=== PATIENT | female | born 1940 | race Caucasian/White ===

== ENCOUNTER 2017-01-12 11:28 | Inpatient (IN) | payer MEDICARE, BC ==
[2017-01-12] MEDS ORDERED: ALBUTEROL SULFATE/IPRATROPIUM 3 ML NEBU IH PRN (11:30)
--- OUTSIDE RECORDS SUMMARY | 2017-01-12 11:33 | XMS REPORT | Continuity of Care Document ---
:1940 Author Organization [facility] ([facility]) Address [address] [place] [address] Phone [phone] Care Team Providers Name Role Phone Errol Monzon Primary Care Provider [phone] Source Comments This disclosure is being made pursuant to the Care Everywhere program, applicable federal and state laws, and may not contain all informaitonavailable regarding this patient.[facility] ([facility]) Active Allergies and Adverse Reactions Allergen Noted Date Severity Reactions Comments Sulfa (Sulfonamide Antibiotics) 08/30/2013 Rash Tramadol 02/12/2014 Respiratory Distress Current Medications Prescription Sig. Disp. Refills Start Date End Date Status warfarin (COUMADIN) Take 5 mg by mouth Active 5 mg tablet daily. Take 1 tab on Glq-tic-Rdm-Sun 1///WED aspirin 81 mg tablet take 81 mg by mouth Active daily. Take 1 tab daily simvastatin 20 mg Take 20 mg by mouth Active tablet every evening. zolpiDEM (AMBIEN) 5 Take 5 mg by mouth Active mg tablet at bedtime as needed. furosemide 40 mg Take 80 mg by mouth Active tablet daily. treprostinil Use 12 inhalations 30 Ampule 11 03/19/2015 Active (TYVASO) 1.74 mg/2.9 by inhalation 4 mL inhalation times daily. solution Indications: PULMONARY HYPERTENSIVE ARTERIAL DISEASE albuterol-ipratropiu Use 3 mL by Active m 2.5-0.5 mg/3 mL inhalation every 6 inhalation solution hours as needed fluticasone-vilanter Use 1 Puff by Active ol (BREO ELLIPTA) inhalation daily 100-25 mcg/dose inhaler INCRUSE ELLIPTA 62.5 Use 1 inhalation by 03/16/2016 Active mcg/actuation inhalation daily. inhaler tadalafil (ADCIRCA) Take 2 tablets (40 60 tablet 11 07/20/2016 Active 20 mg tablet mg total) by mouth daily. potassium chloride Take 1 tablet (10 90 tablet 3 10/06/2016 Active 10 mEq XR tablet mEq total) by mouth daily. macitentan (OPSUMIT) Take 1 tablet (10 mg 30 tablet 11 12/04/2016 Active 10 mg tablet total) by mouth daily. 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 Cardiac output by thermodilution was 4.12 with a Aneta output of 4.08 and index of 2.3. There was no change with adenosine challenge. She is treated withOpsumit and TYVASO breath 4 times a day. Followup echo in July 2014 showed no evidence of pulmonary hypertension Right heart cath 04/17/2015 here at [facility]: RA 6, RV 38/6, PA 38/16 mean 25, wedge 10, SVR 1102, PVR 2.55 cardiac output thermodilution 5.19 with an index of 2.95, and Aneta 5.88 with an index of 3.3, PAmain sat of 69%. No changes were made. Echocardiogram performed March 30, 2016 at [place] revealed an RV systolic pressure of 48 mm mercury her is normal LV ejection fraction and the septum is no longer flattened. COPD (chronic obstructive pulmonary disease) with emphysema 11/19/2014 Overview: Followed by Dr. Nicho William, a director of brand marketing at [facility]. Essential (primary) hypertension 10/09/2014 Systemic sclerosis with limited cutaneous involvement 08/22/2014 Overview: Manifestations: Raynaud's; smooth skin distal to PIP joints; telangiectasia; pulmonary hypertension. Past dx of lupus (arthritis, rash). This is likely an overlap syndrome, however this is not "mixedconnective tissue disease. Serology: Positives: MARQUIS (>1:2560.anti-nucleolar). Also outside labs positive: SSA, SSB, RF. [Normal/neg per outside: Erwin, MEDICAL ASSISTING INSTRUCTOR, dsDNA, LAC, anticardiolipin] Last echo- see Dr. Nelson's overview under PAH. Systemic lupus erythematosus 02/12/2014 Overview: Remote diagnosis based on +MARQUIS, rash and arthritis. Likely now overlap with systemic sclerosis (see other overview). Obstructive sleep apnea 02/12/2014 Hypercholesterolemia without hypertriglyceridemia 12/05/2013 S/P aorto-bifemoral bypass surgery 05/18/2012 Occlusion and stenosis of carotid artery without mention of cerebral 2005 infarction Peripheral vascular disease, unspecified 05/06/2006 Most Recent Encounters Date Type Specialty Providers Description 12/04/2016 Refill Heart and Vascular Sosa Nelson MD Dx: Primary pulmonary hypertension (Primary Dx) 12/01/2016 Orders Only Care Coordination Nicolás Errol Immunizations Name Dates Previously Given Next Due Influenza, unspecified 09/25/2015,10/13/2014,09/06/2013 Zoster, live (Zostavax) 02/12/2011 Social History Tobacco Use Types Packs/Day Years Used Date Former Smoker Cigarettes 1 35 Quit: 02/13/2008 Smokeless Tobacco: Never Used Alcohol Use Drinks/Week oz/Week Comments No Last Filed Vital Signs Vital Sign Reading Time Taken Blood Pressure 106/68 10/06/2016 9:24 AM [facility] Pulse 75 10/06/2016 9:24 AM [facility] Temperature 37.2 C (99 F) 05/05/2016 1:47 PM CDT Respiratory Rate 18 10/06/2016 9:24 AM [facility] Height 1.575 m (5' 2") 10/06/2016 9:24 AM [facility] Weight 65.772 kg (145 lb) 10/06/2016 9:24 AM [facility] Body Mass Index 26.51 10/06/2016 9:24 AM [facility] Oxygen Saturation 91% 10/06/2016 9:24 AM [facility] Plan of Care Date Type Specialty Providers Description 05/04/2017 Appointment Rehabilitation Therapist, Rehab Subj: Appointment [phone] Scheduled 05/04/2017 Appointment Heart and Vascular Default, Other Billg Subj: Appointment - Defo Scheduled [address] [place] [address] [phone] (Fax) 05/04/2017 Appointment Med Rheumatology Melissa Arita, Chief Comp: Patient MD Reported Reason For [address] [place] [address] [phone] (Fax) 05/04/2017 Appointment Heart and Vascular Sosa Nelson MD Subj: Appointment [address] [place] [address] [phone] (Fax) Health Maintenance Due Date Last Done Comments Hepatitis B Vaccine (1 of 3 1940 - Primary Series) Tdap Vaccine 1949 Td Vaccine 1958 Colonoscopy 12/02/1988 Osteoporosis Screening (DXA 2003 Bone Density) Pneumococcal Vaccine (1 of 2003 2 - PCV13) Mammogram 06/30/2017 06/30/2016, 06/30/2016 (Completed outside this hospital or clinic) Lipid Disorder Screening 10/09/2021 10/09/2016 Zoster Vaccine Completed 02/12/2011 Influenza Vaccine: Seasonal Addressed 09/21/2016 (Completed Overridden with the outside this hospital intention of not or clinic), 09/25/2015, completing the topic, 10/13/2014 Additional history exists Results from Last 3 Months Not on file
[2017-01-12 12:22] LABS: Hematocrit 37.9 % (37.0-47.0); Hemoglobin 11.7 gm/dL (12.5-16.0); Mean Cell Volume 81.7 fl (78-100); Mean Corpuscular Hemoglobin 25.2 pg (27-31); Mean Corpuscular Hgb Conc 30.9 g/dl (32-36); Mean Platelet Volume 8.8 fl (6.0-9.5); Neutrophil # 4.4 K/mm3 (1.3-6.0); Neutrophil % 71.7 % (42-75.0); Platelet Count 201 K/mm3 (150-450); Red Blood Count 4.64 M/mm3 (4.2-5.4); Red Cell Distribution Width 18.4 % (11.5-14.0); White Blood Count 6.1 K/mm3 (4.0-10.5)
[2017-01-12 12:42] LABS: Albumin * 3.5 gm/dl (3.4-5.0); Anion Gap 14.8 mmol/L (6.8-13.8); BUN/Creatinine Ratio 12.9 (9.0-21.6); Bilirubin, Total 0.5 mg/dL (0.0-1.1); Calcium * 8.9 mg/dL (7.9-10.9); Carbon Dioxide 26.8 mmol/L (24-32.6); Potassium 3.6 mmol/L (3.4-4.6); Total Protein 8.1 gm/dL (6.2-8.2)
[2017-01-12] MEDS ORDERED: ZOLPIDEM TARTRATE 5 MG TABLET PO PRN (12:54)
[2017-01-12 13:08] LABS: Urine Bilirubin Negative (NEGATIVE); Urine Blood Negative /ul (NEGATIVE); Urine Ketone Negative (NEGATIVE); Urine Nitrite Negative (NEGATIVE); Urine Protein Negative (NEGATIVE); Urine Urobilinogen Normal (NORMAL)
[2017-01-12 13:18] LABS: Urine Appearance Clear; Urine Bacteria None Seen; Urine Color Pale Yellow; Urine RBC None Seen /hpf (0-5); Urine WBC None Seen /hpf (0-5)
[2017-01-12] MEDS: NORMAL SALINE 1,000 ML IV PRN ×2 (13:50→22:37)
[2017-01-12] MEDS: LEVOFLOXACIN 500 MG TABLET PO SCH (13:50)
[2017-01-12] MEDS: METHYLPREDNISOLONE SOD SUCC 60 MG in WATER FOR INJ.,BACTERIOSTATIC 0 ML IV SCH ×2 (13:51→19:26)
[2017-01-12] MEDS: ALBUTEROL SULFATE/IPRATROPIUM 3 ML NEBU IH SCH ×3 (14:26→22:25)
[2017-01-12 16:52] LABS: Prothrombin Time (Patient) 26.5 Seconds (9.4-11.4)
[2017-01-12] MEDS ORDERED: WARFARIN SODIUM 2.5 MG TABLET PO SCH (17:00)
[2017-01-12] MEDS ORDERED: WARFARIN SODIUM 5 MG TABLET PO SCH (17:00)
[2017-01-12 17:28] LABS: INR 2.55 INR (0.90-1.10)
[2017-01-12] MEDS: TADALAFIL 40 MG PO SCH (17:40)
[2017-01-12] MEDS: MACITENTAN 10 MG PO SCH (17:41)
[2017-01-12] MEDS: ALBUTEROL SULFATE 2.5 MG/0.5 ML VIAL.NEB IH PRN (18:40)
[2017-01-12] MEDS ORDERED: SIMVASTATIN 10 MG TABLET PO SCH (21:00)
[2017-01-13] MEDS: METHYLPREDNISOLONE SOD SUCC 60 MG in WATER FOR INJ.,BACTERIOSTATIC 0 ML IV SCH ×3 (01:52→15:01)
[2017-01-13] MEDS: ALBUTEROL SULFATE/IPRATROPIUM 3 ML NEBU IH SCH ×5 (02:43→18:14)
[2017-01-13 05:57] LABS: Prothrombin Time (Patient) 36.6 Seconds (9.4-11.4)
[2017-01-13 06:05] LABS: INR 3.52 INR (0.90-1.10)
[2017-01-13] MEDS ORDERED: PANTOPRAZOLE SODIUM 40 MG TABLET.EC PO SCH ×2 (07:00)
[2017-01-13] MEDS: NORMAL SALINE 1,000 ML IV PRN (07:27)
[2017-01-13] MEDS ORDERED: ACETYLCYSTEINE 200 MG/ML VIAL ONE (08:54)
[2017-01-13] MEDS ORDERED: FUROSEMIDE 20 MG TABLET PO SCH (09:00)
[2017-01-13] MEDS ORDERED: amLODIPine BESYLATE 5 MG TABLET PO SCH (09:00)
[2017-01-13] MEDS ORDERED: ASPIRIN 81 MG TABLET.DR PO SCH (09:00)
[2017-01-13] MEDS ORDERED: LISINOPRIL 5 MG TABLET PO SCH (09:00)
--- NOTE | 2017-01-13 09:00 | PN ---
Subjective - Date and Time Seen Date: 01/13/17 Time: 08:54 Subjective Narrative: Is still short of breath and having frequent coughing bringing up some bloody tinged sputum Objective Objective Narrative: she was hypoxemix during the night - Review of Systems Generalized/Overall Review: Reports: Weakness EENTM: Reports: No Symptoms Reported Respiratory: Reports: Cough, Shortness of Breath Cardiac: Reports: No Symptoms Reported Abdominal: Reports: No Symptoms Reported Genitourinary Symptoms: Reports: No Symptoms Reported Musculoskeletal Complaints: Reports: No Symptoms Reported Neurological: Reports: No Symptoms Reported Skin: Reports: No Symptoms Reported Endocrine: Reports: No Symptoms Reported - Vitals Vitals: Last Vital Signs Temp 36.4 C L 01/13/17 08:02 Pulse 94 01/13/17 08:02 Resp 24 H 01/13/17 08:02 BP 142/64 01/13/17 08:02 Pulse Ox 94 01/13/17 08:02 - Abnormal Lab Findings Abnormal Lab Findings: Abnormal Lab Results 01/12/17 01/12/17 01/12/17 Range/Units 12:15 12:15 12:15 Hgb 11.7 L (12.5-16.0) gm/dL MCH 25.2 L (27-31) pg MCHC 30.9 L (32-36) g/dl RDW 18.4 H (11.5-14.0) % Lymphocytes % 15.5 L (20-51) % Monocytes % 10.1 H (0.0-9) % Lymphocytes # 1.0 L (1.5-3.5) k/mm3 PT (9.4-11.4) Seconds INR (Anticoag Therapy) (0.90-1.10) INR pO2 (83.0-108.0) mmHg Total CO2 (19.0-24.0) mmol/L ABG pH (7.35-7.45) ABG O2 Sat (Measured) (94.0-98.0) % Anion Gap 14.8 H (6.8-13.8) mmol/L ALT 11 L (19-67) U/L B-Natriuretic Peptide 878 H (5-550) pg/mL Procalcitonin Less than 0.05 L (0.05-0.50) ng/mL 01/12/17 01/12/17 01/13/17 Range/Units 12:15 12:35 05:42 Hgb (12.5-16.0) gm/dL MCH (27-31) pg MCHC (32-36) g/dl RDW (11.5-14.0) % Lymphocytes % (20-51) % Monocytes % (0.0-9) % Lymphocytes # (1.5-3.5) k/mm3 PT 26.5 H 36.6 H (9.4-11.4) Seconds INR (Anticoag Therapy) 2.55 H 3.52 H (0.90-1.10) INR pO2 51.5 L (83.0-108.0) mmHg Total CO2 25.7 H (19.0-24.0) mmol/L ABG pH 7.50 H (7.35-7.45) ABG O2 Sat (Measured) 89.9 L (94.0-98.0) % Anion Gap (6.8-13.8) mmol/L ALT (19-67) U/L B-Natriuretic Peptide (5-550) pg/mL Procalcitonin (0.05-0.50) ng/mL - Exam Constitutional: Present: Alert, Oriented x3, Mild distress Respiratory: Present: respiratory distress, No wheezing Cardiovascular/Chest: Present: regular rate, rhythm, tachycardia Abdomen: Present: soft, nontender Extremity: Present: no pedal edema Assessment/Plan Plan Narrative: will add mucumist and albuterol - Problems/Diagnosis (1) Bronchitis Problem: Chronic (2) Pulmonary hypertension Problem: Chronic
[2017-01-13] MEDS ORDERED: ALBUTEROL SULFATE 2.5 MG/0.5 ML VIAL.NEB IH PRN (09:23)
[2017-01-13] MEDS: ALBUTEROL SULFATE 2.5 MG/0.5 ML VIAL.NEB IH PRN (09:23)
[2017-01-13] MEDS: ACETYLCYSTEINE 200 MG/ML VIAL IH PRN ×2 (09:23→10:21)
[2017-01-13] MEDS ORDERED: FUROSEMIDE 10 MG/ML VIAL IV ONE ×2 (09:37→13:09)
[2017-01-13] MEDS: LEVOFLOXACIN 500 MG TABLET PO SCH (09:37)
[2017-01-13] MEDS: MACITENTAN 10 MG PO SCH (09:38)
[2017-01-13] MEDS ORDERED: FUROSEMIDE 10 MG/ML VIAL IV STA (09:38)
[2017-01-13] MEDS ORDERED: METOLAZONE 5 MG TABLET PO ONE (09:38)
[2017-01-13] MEDS: TADALAFIL 40 MG PO SCH (09:39)
[2017-01-13] MEDS ORDERED: MORPHINE SULFATE 2 MG/ML DISP.SYRIN IV ONE (10:39)
[2017-01-13 10:56] VITALS: BP 155/64
[2017-01-13] MEDS ORDERED: MORPHINE SULFATE 2 MG/ML DISP.SYRIN IV PRN (11:32)
[2017-01-13] MEDS ORDERED: LIDOCAINE/PRILOCAINE 30 APPL TUBE TP PRN (13:36)
[2017-01-13 13:51] LABS: Anion Gap 16.4 mmol/L (6.8-13.8); BUN/Creatinine Ratio 12.5 (9.0-21.6); Calcium * 8.6 mg/dL (7.9-10.9); Carbon Dioxide 25.5 mmol/L (24-32.6); Estimated Creat Clear 32.7; Potassium 3.9 mmol/L (3.4-4.6)
[2017-01-13] MEDS: MORPHINE SULFATE 2 MG/ML DISP.SYRIN IV PRN ×2 (14:58→19:18)
[2017-01-13] MEDS ORDERED: WARFARIN SODIUM 5 MG TABLET PO SCH (17:00)
[2017-01-14] MEDS ORDERED: PANTOPRAZOLE SODIUM 40 MG TABLET.EC PO SCH (07:00)
--- NOTE | 2017-01-14 08:39 | DS ---
(1) Bronchitis Problem: Chronic (2) Pulmonary hypertension Problem: Chronic (3) CHF exacerbation Diagnosis(s): Congestive heart failure due to fluid overload Problem: Acute Description of Stay: 76-year-old white female known to have pulmonary hypertension admitted because of shortness of breath coughing purulent phlegm and hypoxemia. She was treated with IV Solu-Medrol IV Rocephin and oral Levaquin and also class given IV fluid normal saline at 125 ML per hour. Admission chest x-ray did not show pneumonia or CHF. She continued to be short of breath and hypoxemic and has great difficulty bringing up M. Her BNP went up from 800-1100 and a repeat chest x- ray show interstitial edema so IV fluid was Discontinued ,she was put on BiPAP and she was given IV Lasix she diuresed well continued to be restless short of breath and hypoxemic so I made arrangement for her to be transferred to [facility] Procedures Performed: none Discharge Disposition: [facility] Disposition: [facility] Condition: Serious Referrals: Errol Monzon MD [Primary Care Provider] - Complete Home Medications List: Complete Home Medication List: Simvastatin 20 mg PO DAILY 10/13/13 Albuterol Sulfate [Albuterol Sulfate 2.5 MG/0.5ML] 2.5 mg IH Q4HRT PRN #0 vial.neb 10/15/13 Zolpidem Tartrate [Ambien] 5 mg PO HS PRN #0 tablet 10/15/13 Warfarin Sodium [Coumadin] 5 mg PO DAILY 10/16/13 Pantoprazole Sodium [Protonix] 40 mg PO DAILY@0700 #0 tablet. 10/19/13 Aspirin [Aspirin Enteric Coated] 81 mg PO DAILY 12/09/13 Furosemide [Lasix] 80 mg PO DAILY 12/09/13 Macitentan [Opsumit] 10 mg PO DAILY 01/12/17 Tadalafil [Adcirca] 40 mg PO DAILY 01/12/17 Treprostinil [Tyvaso] 12 puff IH QID 01/12/17
--- NOTE | 2017-01-14 14:10 | ECHO ---
This report is available in the EMR
[2017-01-14] MEDS ORDERED: WARFARIN SODIUM 1 TAB TAB PO SCH (17:00)
== END 2017-01-13 19:40 | disposition short-term general hospital (02) | DRG 206 ==
LOC: MS 11:28 → OBSVTOIN 01-13 08:34
PROVIDERS: ADMIT Internal Medicine; ATTEND Internal Medicine
PROC: 4A033R1 Measurement of Arterial Saturation, Peripheral, Percutaneous Approach (ICD-10-PCS; 2017-01-12)
PROC: B246ZZZ Ultrasonography of Right and Left Heart (ICD-10-PCS; principal; 2017-01-13)
DX: R09.02 Hypoxemia (principal); I50.9 Heart failure, unspecified; E87.70 Fluid overload, unspecified; J44.9 Chronic obstructive pulmonary disease, unspecified; I10 Essential (primary) hypertension; I27.2 Other secondary pulmonary hypertension; M34.9 Systemic sclerosis, unspecified; Z99.81 Dependence on supplemental oxygen
CPT/HCPCS: 36415; 36600; 71010; 71020; 80048; 80053; 81001; 82803; 83880; 84145; 85025; 85610; 93306; 94640; 94660; 97162; 97165; G0378; G0379; G8978; G8979; G8980

== ENCOUNTER 2017-12-01 06:38 | Inpatient (IN) | payer MEDICARE, BC ==
[2017-12-01] MEDS ORDERED: ACETAMINOPHEN 325 MG TABLET PO ONE (06:53)
[2017-12-01] MEDS ORDERED: ACETAMINOPHEN 325 MG TABLET ONE (06:54)
--- NOTE | 2017-12-01 06:56 | ERNOTE ---
<Buster Farah - Last Filed: 12/01/17 08:05> Dyspnea - General Time Seen by Provider: 12/01/17 06:40 Source: patient, family, EMS Exam Limitations: clinical condition - Immun/Allergies/Home Medications Allergies/Adverse Reactions: Allergies tramadol Allergy (Severe, Verified 12/01/17 06:51) Swelling of Throat sulfamethoxazole [From Bactrim] Allergy (Unknown, Verified 12/01/17 06:51) Hives trimethoprim [From Bactrim] Allergy (Unknown, Verified 12/01/17 06:51) Hives Home Medications: HOME MEDICATIONS Simvastatin 20 mg PO DAILY 10/13/13 [Last Taken 10/16/13] Albuterol Sulfate [Albuterol Sulfate 2.5 MG/0.5ML] 2.5 mg IH Q4HRT PRN #0 vial.neb 10/15/13 [Last Taken Unknown] Zolpidem Tartrate [Ambien] 5 mg PO HS PRN #0 tablet 10/15/13 [Last Taken Unknown ] Warfarin Sodium [Coumadin] 5 mg PO DAILY 10/16/13 [Last Taken Unknown] Pantoprazole Sodium [Protonix] 40 mg PO DAILY@0700 #0 tablet.dr 10/19/13 [Last Taken Unknown] Aspirin [Aspirin Enteric Coated] 81 mg PO DAILY 12/09/13 [Last Taken Unknown] Furosemide [Lasix] 80 mg PO DAILY 12/09/13 [Last Taken Unknown] Macitentan [Opsumit] 10 mg PO DAILY 01/12/17 [Last Taken Unknown] Tadalafil [Adcirca] 40 mg PO DAILY 01/12/17 [Last Taken Unknown] Treprostinil [Tyvaso] 12 puff IH QID 01/12/17 [Last Taken Unknown] - History of Present Illness Narrative: Pt awoke this am with increased shortness of breath and blood tinged sputum. Has required increased oxygen supplimentation over her normal. Severity: severe Treatment [employer]: paramedics Frequency of episodes: Reports: frequent episodes Review of Systems - Review of Systems Constitutional: Present: recent illness - approx one month ago, chills EYE: Present: no symptoms reported ENT: Present: no symptoms reported Respiratory: Present: See HPI, shortness of breath, cough Cardiology: Present: no symptoms reported Gastrointestinal/Abdominal: Absent: nausea, vomiting Genitourinary: Present: no symptoms reported Musculoskeletal: Present: no symptoms reported Skin: Present: no symptoms reported Neurological: Present: no symptoms reported Endocrine: Present: no symptoms reported Hematologic/Lymphatic: Present: no symptoms reported Psych: Present: no symptoms reported - Patient's Past Medical History Patient History - Cardiac/Respiratory: COPD, Hypertension, Hyperlipidemia, Other Patient History - Cancer: No Hx of Cancer Patient History - Surgical Procedures: Appendectomy, Coronary Bypass Surgery, Hysterectomy Patient History - Other: None - Family History Mother Family History - Medical: , No pertinent hx Family History - Cardiac/Respiratory: Hypertension Family History - Cancer: No pertinent family hx Father Family History - Medical: , No pertinent hx Family History - Cardiac/Respiratory: No pertinent hx Family History - Cancer: Lung - Social History Abuse History: No History of abuse Psych History: No pertinent hx Physical Exam - Physical Exam General Appearance: Present: wd/wn, alert, moderate distress Head Exam: Present: normal inspection, no evidence of injury Eye Exam: Normal inspection: bilateral Ears, Nose, Throat: Present: normal ENT inspection, dry mucous membranes Neck: Present: normal inspection, nontender Respiratory: Present: respiratory distress, accessory muscle use, decreased breath sounds, rhonchi Cardiovascular/Chest: Present: no murmur, tachycardia Skin Exam: Present: normal color, warm/dry ED Progress - Results and Orders Patient's Lab Results:: I have reviewed the patient's lab results. - Transfer of Care Physician Sign Out: Buster Farah Receiving Physician: Nelson Malik Pending Results: X-ray results Expected Disposition: Admit Departure Clinical Impression: Shortness of breath, Pulmonary hypertension, Bronchitis - Departure Disposition: [facility] Condition: Fair Referrals: Errol Mccann MD [Primary Care Provider] - <Nelson Malik - Last Filed: 12/01/17 10:11> ED Progress - Vital Signs Patient's Vital Signs:: I have reviewed the patient's vital signs. Vital Signs: Vital Signs 12/01/17 12/01/17 12/01/17 06:45 06:51 08:25 Temperature 39.6 C H 39.0 C H Pulse Rate 114 H 114 H 104 H Respiratory 21 H 25 H 22 H Rate Blood Pressure 142/61 142/61 108/40 O2 Sat by Pulse 84 L 90 86 L Oximetry 12/01/17 09:19 Temperature Pulse Rate 93 Respiratory 14 Rate Blood Pressure 106/41 O2 Sat by Pulse 92 Oximetry - EKG EKG: NSR Plan - Plan Plan: to be admitted , case discussed with dr mccann, accepted for admission
[2017-12-01 07:13] LABS: Hematocrit 35.8 % (37.0-47.0); Hemoglobin 11.4 gm/dL (12.5-16.0); Mean Cell Volume 84.8 fl (78-100); Mean Corpuscular Hgb Conc 31.8 g/dl (32-36); Mean Platelet Volume 9.4 fl (6.0-9.5); Neutrophil # 10.1 K/mm3 (1.3-6.0); Neutrophil % 89.5 % (42-75.0); Platelet Count 185 K/mm3 (150-450); Red Blood Count 4.22 M/mm3 (4.2-5.4); Red Cell Distribution Width 16.4 % (11.5-14.0); White Blood Count 11.3 K/mm3 (4.0-10.5)
[2017-12-01 07:31] LABS: Albumin * 3.2 gm/dl (3.4-5.0); Anion Gap 12.3 mmol/L (6.8-13.8); BUN/Creatinine Ratio 13.7 (9.0-21.6); Bilirubin, Total 0.3 mg/dL (0.0-1.1); Ca. Corrected For Albumin 8.4 mg/dL (8.4-10.2); Calcium * 8.1 mg/dL (7.9-10.9); Carbon Dioxide 28.2 mmol/L (24-32.6); Potassium 3.5 mmol/L (3.4-4.6)
[2017-12-01] MEDS ORDERED: METHYLPREDNISOLONE SOD SUCC/PF 125 MG/2 ML VIAL IV ONE (08:52)
[2017-12-01] MEDS ORDERED: METHYLPREDNISOLONE SOD SUCC/PF 125 MG/2 ML VIAL ONE (09:10)
[2017-12-01] MEDS ORDERED: cefTRIAXone SODIUM 1,000 MG in DEXTROSE 5 % IN WATER 50 ML IV ONE ×2 (09:30)
[2017-12-01] MEDS ORDERED: NORMAL SALINE 1,000 ML IV ONE (10:18)
[2017-12-01] MEDS ORDERED: FUROSEMIDE 10 MG/ML VIAL IV ONE (11:48)
[2017-12-01 12:13] LABS: Prothrombin Time (Patient) 29.9 Seconds (9.0-11.0)
[2017-12-01 12:23] LABS: INR 2.96 INR (0.90-1.10)
[2017-12-01] MEDS: SIMVASTATIN 20 MG TABLET PO SCH (12:28)
[2017-12-01] MEDS: ASPIRIN 81 MG TABLET.DR PO SCH (12:28)
[2017-12-01] MEDS: INCRUSE ELLIPTA PO SCH (12:28)
[2017-12-01] MEDS: BREO ELLIPTA PO SCH (12:29)
[2017-12-01] MEDS: TREPROSTINIL IH SCH ×3 (12:29→20:28)
[2017-12-01] MEDS: METHYLPREDNISOLONE SOD SUCC 100 MG in WATER FOR INJ.,BACTERIOSTATIC 0 ML IV SCH ×2 (13:06→20:28)
[2017-12-01] MEDS: PANTOPRAZOLE SODIUM 40 MG TABLET.EC PO SCH (13:06)
--- NOTE | 2017-12-01 15:07 | HP ---
Chief Complaint - Chief Complaint Date of Service: 12/01/17 Time of Service: 14:57 Chief Complaint: Shortness of breath and hemoptysis History of Present Illness: She will cut this morning markedly short of breath and had some blood-streaked sputum she was brought in by ambulance to the emergency room and was found out to be hypoxemic and elevated lactic acid; chest x-ray did not show any pneumonia. Chest x-ray show some interstitial infiltrates and cardiomegaly; BNP is elevated to 1196; her breathing improved after receiving Solu-Medrol and nebulizer treatment - Patient's Past Medical History Patient History - Medical: No pertinent hx Patient History - Cardiac/Respiratory: COPD, Hypertension, Hyperlipidemia, Other Additional Info: History of pulmonary hypertension secondary to scleroderma; history of systemic lupus and obstructive sleep apnea History of respiratory failure due to COPD and pulmonary hypertension requiring transfer [facility] in December 2016 Patient History - Cancer: No Hx of Cancer Patient History - Surgical Procedures: Appendectomy, Coronary Bypass Surgery, Hysterectomy Patient History - Other: None - Family History Mother Family History - Medical: , No pertinent hx Family History - Cardiac/Respiratory: Hypertension Family History - Cancer: No pertinent family hx Father Family History - Medical: , No pertinent hx Family History - Cardiac/Respiratory: No pertinent hx Family History - Cancer: Lung - Social History Living Situations: alone Abuse History: No History of abuse Psych History: No pertinent hx Smoking Status: Former smoker Have you smoked in the past 12 months: No Do you dip or chew tobacco: No Patient requests Smoking Cessation Consult: No Initiate information on Smoking Cessation: No Alcohol Use: none Drug Use: none Review Of Systems (GEN) - Review of Systems Generalized/Overall Review: Present: Weakness EENTM: Present: No Symptoms Reported Respiratory: Present: Cough, Shortness of Breath, Wheezing Cardiac: Present: No Symptoms Reported Abdominal: Present: No Symptoms Reported Genitourinary: Present: No Symptoms Reported Musculoskeletal: Present: No Symptoms Reported Neurological: Present: No Symptoms Reported Allergies/Adverse Reactions: Allergies Allergy/AdvReac Type Severity Reaction Status Date / Time tramadol Allergy Severe Swelling Verified 12/01/17 11:34 of Throat sulfamethoxazole Allergy Unknown Hives Verified 12/01/17 11:34 [From Bactrim] trimethoprim [From Bactrim] Allergy Unknown Hives Verified 12/01/17 11:34 Home Medications: HOME MEDICATIONS Simvastatin 20 mg PO DAILY 11/15/13 [Last Taken 10/16/13] Albuterol Sulfate [Albuterol Sulfate 2.5 MG/0.5ML] 2.5 mg IH Q4HRT PRN #0 vial.neb 10/15/13 [Last Taken Unknown] Zolpidem Tartrate [Ambien] 5 mg PO HS PRN #0 tablet 10/15/13 [Last Taken Unknown ] Warfarin Sodium [Coumadin] 5 mg PO DAILY 10/16/13 [Last Taken Unknown] Aspirin [Aspirin Enteric Coated] 81 mg PO DAILY 12/09/13 [Last Taken Unknown] Furosemide [Lasix] 80 mg PO DAILY 12/09/13 [Last Taken Unknown] Macitentan [Opsumit] 10 mg PO DAILY 01/12/17 [Last Taken Unknown] Tadalafil [Adcirca] 40 mg PO DAILY 01/12/17 [Last Taken Unknown] Treprostinil [Tyvaso] 12 puff IH QID 01/12/17 [Last Taken Unknown] Fluticasone/Vilanterol [Breo Ellipta 100-25 Mcg INH] 1 inh INH DAILY 12/01/17 [ Last Taken Unknown] Umeclidinium Lerna [Incruse Ellipta] 62.5 mcg IH DAILY 12/01/17 [Last Taken Unknown] Exam - Exam Vital Signs: Vital Signs - Last Taken Temp 37.1 C 12/01/17 11:25 Pulse 95 12/01/17 12:46 Resp 18 12/01/17 11:25 BP 144/51 12/01/17 12:17 Pulse Ox 91 12/01/17 11:25 Constitutional: Present: Alert, Oriented x3, Cooperative ENT Exam: Present: normal ENT inspection Neck: Present: non-tender Back Exam: Present: no CVA tenderness Breasts: Present: Exam deferred Respiratory: Present: lungs clear, normal breath sounds Cardiovascular/Chest: Present: regular rate, rhythm, tachycardia Abdomen: Present: Normal bowel sounds, soft, nontender /Rectal: Present: Exam deferred Extremity: Present: no pedal edema Skin Exam: Present: normal color Neurologic: Present: tafe registrar II-XII nml as tested Diagnostic Studies: Abnormal Lab Results 12/01/17 Range/Units 11:45 Lactic Acid, Venous 2.0 H (0.4-1.9) mmol/L Laboratory Results WBC 11.3 K/mm3 (4.0-10.5) H 12/01/17 07:05 RBC 4.22 M/mm3 (4.2-5.4) 12/01/17 07:05 Hgb 11.4 gm/dL (12.5-16.0) L 12/01/17 07:05 Hct 35.8 % (37.0-47.0) L 12/01/17 07:05 MCV 84.8 fl (78-100) 12/01/17 07:05 MCH 27.0 pg (27-31) 12/01/17 07:05 MCHC 31.8 g/dl (32-36) L 12/01/17 07:05 RDW 16.4 % (11.5-14.0) H 12/01/17 07:05 Plt Count 185 K/mm3 (150-450) 12/01/17 07:05 MPV 9.4 fl (6.0-9.5) 12/01/17 07:05 Immature Gran % (Auto) 0.80 % (0.001-0.429) H 12/01/17 07:05 Immature Gran # (Auto) 0.09 K/mm3 (0.000-0.0310) H 12/01/17 07:05 Neutrophils % 89.5 % (42-75.0) H 12/01/17 07:05 Lymphocytes % 2.9 % (20-51) L 12/01/17 07:05 Monocytes % 6.7 % (0.0-9) 12/01/17 07:05 Eosinophils % 0.0 % (0.0-3.0) 12/01/17 07:05 Basophils % 0.1 % (0.0-1.0) 12/01/17 07:05 Nucleated RBC % 0.0 k/mm3 (0-1) 12/01/17 07:05 Neutrophils # 10.1 K/mm3 (1.3-6.0) H 12/01/17 07:05 Lymphocytes # 0.3 k/mm3 (1.5-3.5) L 12/01/17 07:05 Monocytes # 0.8 k/mm3 (0.0-1.0) 12/01/17 07:05 Eosinophils # 0.0 k/mm3 (0.0-0.7) 12/01/17 07:05 Absolute Basophils 0.0 k/mm3 (0.0-0.1) 12/01/17 07:05 PT 29.9 Seconds (9.0-11.0) H 12/01/17 07:05 INR (Anticoag Therapy) 2.96 INR (0.90-1.10) H 12/01/17 07:05 pCO2 29.0 mmHg (32.0-45.0) L 12/01/17 06:50 pO2 48.5 mmHg (83.0-108.0) L 12/01/17 06:50 HCO3 22.5 mmol/L (21.0-28.0) 12/01/17 06:50 Total CO2 23.4 mmol/L (19.0-24.0) 12/01/17 06:50 Base Excess 0.3 mmol/L (-2.0-3.0) 12/01/17 06:50 ABG pH 7.51 (7.35-7.45) H 12/01/17 06:50 ABG O2 Sat (Measured) 88.5 % (94.0-98.0) L 12/01/17 06:50 Sodium 142 mmol/L (132-142) 12/01/17 07:05 Plasma Sodium 143 mmol/L (130-142) H 12/01/17 07:05 Potassium 3.5 mmol/L (3.4-4.6) 12/01/17 07:05 Chloride 105 mmol/L (97-106) 12/01/17 07:05 Carbon Dioxide 28.2 mmol/L (24-32.6) 12/01/17 07:05 Anion Gap 12.3 mmol/L (6.8-13.8) 12/01/17 07:05 BUN 16 mg/dL (3-23) D 12/01/17 07:05 Creatinine 1.17 mg/dL (0.4-1.4) 12/01/17 07:05 Est GFR (Non-Af Amer) 48 mL/min (60-130) L D 12/01/17 07:05 BUN/Creatinine Ratio 13.7 (9.0-21.6) 12/01/17 07:05 Random Glucose 133 mg/dL (70-110) H 12/01/17 07:05 Lactic Acid, Venous 2.0 mmol/L (0.4-1.9) H 12/01/17 11:45 Calcium 8.1 mg/dL (7.9-10.9) 12/01/17 07:05 Calcium Adj for Albumin 8.4 mg/dL (8.4-10.2) 12/01/17 07:05 Total Bilirubin 0.3 mg/dL (0.0-1.1) 12/01/17 07:05 AST 37 U/L (0-48) 12/01/17 07:05 ALT 22 U/L (19-67) 12/01/17 07:05 Alkaline Phosphatase 74 U/L (50-170) 12/01/17 07:05 C-Reactive Prot, Quant 1.5 mg/dL (0.0-0.9) H 12/01/17 07:05 B-Natriuretic Peptide 1195 pg/mL (5-550) H 12/01/17 07:05 Total Protein 7.0 gm/dL (6.2-8.2) 12/01/17 07:05 Albumin 3.2 gm/dl (3.4-5.0) L 12/01/17 07:05 Procalcitonin 0.37 ng/mL (0.05-0.50) 12/01/17 07:05 Influenza Type A Ag Negative (NEGATIVE) 12/01/17 06:58 Influenza Type B Ag Negative (NEGATIVE) 12/01/17 06:58 Assessment/Plan - Assessment/Plan (1) Pulmonary hypertension Assessment: Continue current medication for pulmonary hypertension Problem: Chronic (2) CHF exacerbation Assessment: IV Lasix 60 mg; lung ultrasound and echocardiogram Problem: Acute (3) COPD (chronic obstructive pulmonary disease) Assessment: Continue IV Rocephin and IV Solu-Medrol Monitor O2 saturation and adjusts O2 requirement accordingly Problem: Acute
[2017-12-01] MEDS: ALBUTEROL SULFATE 2.5 MG/0.5 ML VIAL.NEB IH PRN ×2 (15:20→21:01)
[2017-12-01] MEDS ORDERED: WARFARIN SODIUM 5 MG TABLET PO SCH (17:00)
[2017-12-01] MEDS: AZITHROMYCIN 250 MG TABLET PO SCH (17:31)
[2017-12-01] MEDS: NORMAL SALINE 1,000 ML IV PRN (17:34)
[2017-12-01] MEDS: Macitentan [Opsumit] 10 MG PO SCH (20:28)
[2017-12-01] MEDS: ZOLPIDEM TARTRATE 5 MG TABLET PO PRN ×2 (21:18→21:33)
[2017-12-02] MEDS: NORMAL SALINE 1,000 ML IV PRN (03:36)
[2017-12-02] MEDS: METHYLPREDNISOLONE SOD SUCC 100 MG in WATER FOR INJ.,BACTERIOSTATIC 0 ML IV SCH ×3 (04:43→21:05)
[2017-12-02 06:02] LABS: Hematocrit 32.2 % (37.0-47.0); Hemoglobin 10.2 gm/dL (12.5-16.0); Mean Cell Volume 84.1 fl (78-100); Mean Corpuscular Hemoglobin 26.6 pg (27-31); Mean Corpuscular Hgb Conc 31.7 g/dl (32-36); Mean Platelet Volume 9.3 fl (6.0-9.5); Neutrophil # 10.7 K/mm3 (1.3-6.0); Neutrophil % 90.9 % (42-75.0); Platelet Count 160 K/mm3 (150-450); Red Blood Count 3.83 M/mm3 (4.2-5.4); Red Cell Distribution Width 16.8 % (11.5-14.0); White Blood Count 11.7 K/mm3 (4.0-10.5)
[2017-12-02 06:14] LABS: INR 3.21 INR (0.90-1.10); Prothrombin Time (Patient) 32.5 Seconds (9.0-11.0)
[2017-12-02 06:25] LABS: Albumin * 2.7 gm/dl (3.4-5.0); Anion Gap 7.5 mmol/L (6.8-13.8); BUN/Creatinine Ratio 19.8 (9.0-21.6); Bilirubin, Total 0.3 mg/dL (0.0-1.1); Ca. Corrected For Albumin 9.2 mg/dL (8.4-10.2); Calcium * 8.5 mg/dL (7.9-10.9); Carbon Dioxide 29.1 mmol/L (24-32.6); Potassium 3.6 mmol/L (3.4-4.6); Total Protein 6.5 gm/dL (6.2-8.2)
[2017-12-02] MEDS: TREPROSTINIL IH SCH ×5 (07:34→21:05)
[2017-12-02] MEDS: PANTOPRAZOLE SODIUM 40 MG TABLET.EC PO SCH (07:44)
[2017-12-02] MEDS ORDERED: FUROSEMIDE 10 MG/ML VIAL IV ONE (08:29)
--- NOTE | 2017-12-02 08:49 | PN ---
Subjective - Date and Time Seen Date: 12/02/17 Time: 08:44 Subjective Narrative: She is feeling and breathing better and slept good through the night. He still have coughing some slightly purulent phlegm Objective - Review of Systems Generalized/Overall Review: Reports: No Symptoms Reported EENTM: Reports: No Symptoms Reported Respiratory: Reports: Cough Cardiac: Reports: No Symptoms Reported Abdominal: Reports: No Symptoms Reported Genitourinary Symptoms: Reports: No Symptoms Reported Musculoskeletal Complaints: Reports: No Symptoms Reported - Vitals Vitals: Last Vital Signs Temp 36.7 C 12/02/17 06:43 Pulse 84 12/02/17 06:43 Resp 24 H 12/02/17 06:43 BP 150/67 12/02/17 06:43 Pulse Ox 85 L 12/02/17 06:43 - Abnormal Lab Findings Abnormal Lab Findings: Abnormal Lab Results 12/01/17 12/01/17 12/02/17 Range/Units 11:45 17:15 05:54 WBC 11.7 H (4.0-10.5) K/mm3 RBC 3.83 L (4.2-5.4) M/mm3 Hgb 10.2 L (12.5-16.0) gm/dL Hct 32.2 L (37.0-47.0) % MCH 26.6 L (27-31) pg MCHC 31.7 L (32-36) g/dl RDW 16.8 H (11.5-14.0) % Immature Gran % (Auto) 1.70 H (0.001-0.429) % Immature Gran # (Auto) 0.20 H (0.000-0.0310) K/mm3 Neutrophils % 90.9 H (42-75.0) % Lymphocytes % 5.2 L (20-51) % Neutrophils # 10.7 H (1.3-6.0) K/mm3 Lymphocytes # 0.6 L (1.5-3.5) k/mm3 PT (9.0-11.0) Seconds INR (Anticoag Therapy) (0.90-1.10) INR pO2 52.5 L (83.0-108.0) mmHg ABG pH 7.46 H (7.35-7.45) ABG O2 Sat (Measured) 89.2 L (94.0-98.0) % Random Glucose (70-110) mg/dL Lactic Acid, Venous 2.0 H (0.4-1.9) mmol/L B-Natriuretic Peptide (5-550) pg/mL Albumin (3.4-5.0) gm/dl Procalcitonin (0.05-0.50) ng/mL 12/02/17 12/02/17 12/02/17 Range/Units 05:54 05:54 05:54 WBC (4.0-10.5) K/mm3 RBC (4.2-5.4) M/mm3 Hgb (12.5-16.0) gm/dL Hct (37.0-47.0) % MCH (27-31) pg MCHC (32-36) g/dl RDW (11.5-14.0) % Immature Gran % (Auto) (0.001-0.429) % Immature Gran # (Auto) (0.000-0.0310) K/mm3 Neutrophils % (42-75.0) % Lymphocytes % (20-51) % Neutrophils # (1.3-6.0) K/mm3 Lymphocytes # (1.5-3.5) k/mm3 PT 32.5 H (9.0-11.0) Seconds INR (Anticoag Therapy) 3.21 H (0.90-1.10) INR pO2 (83.0-108.0) mmHg ABG pH (7.35-7.45) ABG O2 Sat (Measured) (94.0-98.0) % Random Glucose 126 H (70-110) mg/dL Lactic Acid, Venous (0.4-1.9) mmol/L B-Natriuretic Peptide 7909 H (5-550) pg/mL Albumin 2.7 L (3.4-5.0) gm/dl Procalcitonin 12.60 H (0.05-0.50) ng/mL - Exam Constitutional: Present: Alert, Oriented x3, No distress Respiratory: Present: no accessory muscle use, rales, No wheezing Cardiovascular/Chest: Present: regular rate, rhythm Abdomen: Present: soft, nontender Extremity: Present: no pedal edema Skin Exam: Present: normal color Assessment/Plan - Problems/Diagnosis (1) Pulmonary hypertension Problem: Chronic (2) CHF exacerbation Problem: Acute Narrative: BNP went up from 11 to 7,000 Chest x-ray show increasing interstitial infiltrate and cardiomegaly Stop IV saline and will give IV Lasix (3) COPD (chronic obstructive pulmonary disease) Problem: Acute Narrative: Pro-calcitonin was normal and now markedly elevated Blood culture growing strep pneumo We'll continue current antibiotic treatment
[2017-12-02] MEDS ORDERED: FUROSEMIDE 100 MG, FUROSEMIDE 20 MG IV ONE ×2 (09:00)
[2017-12-02] MEDS: BREO ELLIPTA PO SCH (10:03)
[2017-12-02] MEDS: ASPIRIN 81 MG TABLET.DR PO SCH (10:03)
[2017-12-02] MEDS: INCRUSE ELLIPTA PO SCH (10:04)
[2017-12-02] MEDS: cefTRIAXone SODIUM 1,000 MG in DEXTROSE 5 % IN WATER 50 ML IV SCH ×2 (10:06)
[2017-12-02] MEDS: TADALAFIL 40 MG PO SCH (10:07)
[2017-12-02] MEDS: AZITHROMYCIN 250 MG TABLET PO SCH (10:08)
[2017-12-02] MEDS: SIMVASTATIN 20 MG TABLET PO SCH (10:09)
[2017-12-02] MEDS: FUROSEMIDE 80 MG TABLET PO SCH (11:33)
[2017-12-02] MEDS: NYSTATIN 60 ML BTL PO SCH ×2 (18:37→21:05)
[2017-12-02] MEDS: ZOLPIDEM TARTRATE 5 MG TABLET PO PRN (21:04)
[2017-12-02] MEDS: Macitentan [Opsumit] 10 MG PO SCH (21:04)
[2017-12-02] MEDS: ALBUTEROL SULFATE 2.5 MG/0.5 ML VIAL.NEB IH PRN (21:22)
[2017-12-03] MEDS: METHYLPREDNISOLONE SOD SUCC 100 MG in WATER FOR INJ.,BACTERIOSTATIC 0 ML IV SCH (04:17)
[2017-12-03 06:02] LABS: Hematocrit 34.2 % (37.0-47.0); Hemoglobin 10.9 gm/dL (12.5-16.0); Mean Cell Volume 84.2 fl (78-100); Mean Corpuscular Hemoglobin 26.8 pg (27-31); Mean Corpuscular Hgb Conc 31.9 g/dl (32-36); Neutrophil # 8.5 K/mm3 (1.3-6.0); Neutrophil % 91.6 % (42-75.0); Platelet Count 180 K/mm3 (150-450); Red Blood Count 4.06 M/mm3 (4.2-5.4); Red Cell Distribution Width 16.4 % (11.5-14.0); White Blood Count 9.3 K/mm3 (4.0-10.5)
[2017-12-03 06:11] LABS: Anion Gap 13.9 mmol/L (6.8-13.8); BUN/Creatinine Ratio 22.8 (9.0-21.6); Bilirubin, Total 0.2 mg/dL (0.0-1.1); Ca. Corrected For Albumin 9.3 mg/dL (8.4-10.2); Calcium * 8.8 mg/dL (7.9-10.9); Carbon Dioxide 28.5 mmol/L (24-32.6); Potassium 3.4 mmol/L (3.4-4.6); Total Protein 7.1 gm/dL (6.2-8.2)
[2017-12-03 06:33] LABS: Prothrombin Time (Patient) 34.6 Seconds (9.0-11.0)
[2017-12-03 06:34] LABS: INR 3.42 INR (0.90-1.10)
[2017-12-03] MEDS: PANTOPRAZOLE SODIUM 40 MG TABLET.EC PO SCH (07:04)
[2017-12-03] MEDS: TREPROSTINIL IH SCH ×5 (07:05→21:34)
[2017-12-03] MEDS: ASPIRIN 81 MG TABLET.DR PO SCH (09:39)
[2017-12-03] MEDS: FUROSEMIDE 80 MG TABLET PO SCH (09:40)
[2017-12-03] MEDS: NYSTATIN 60 ML BTL PO SCH ×4 (09:40→21:24)
[2017-12-03] MEDS: AZITHROMYCIN 250 MG TABLET PO SCH (09:41)
[2017-12-03] MEDS: SIMVASTATIN 20 MG TABLET PO SCH (09:41)
[2017-12-03] MEDS: cefTRIAXone SODIUM 1,000 MG in DEXTROSE 5 % IN WATER 50 ML IV SCH ×2 (09:41)
[2017-12-03] MEDS: TADALAFIL 40 MG PO SCH (09:42)
[2017-12-03] MEDS: INCRUSE ELLIPTA PO SCH (09:43)
[2017-12-03] MEDS: BREO ELLIPTA PO SCH (09:43)
[2017-12-03] MEDS: predniSONE 20 MG TABLET PO SCH (10:23)
[2017-12-03] MEDS: LEVOFLOXACIN 750 MG TABLET PO SCH (10:24)
--- NOTE | 2017-12-03 10:40 | PN ---
Subjective - Date and Time Seen Date: 12/03/17 Time: 10:33 Subjective Narrative: Patient is breathing and feeling better still has occasional cough Objective - Review of Systems Generalized/Overall Review: Reports: No Symptoms Reported EENTM: Reports: No Symptoms Reported Respiratory: Reports: Cough Cardiac: Reports: No Symptoms Reported Abdominal: Reports: No Symptoms Reported Genitourinary Symptoms: Reports: No Symptoms Reported Skin: Reports: No Symptoms Reported - Vitals Vitals: Last Vital Signs Temp 36.4 C L 12/03/17 06:50 Pulse 67 12/03/17 09:40 Resp 16 12/03/17 06:50 BP 143/64 12/03/17 09:40 Pulse Ox 95 12/03/17 06:50 - Abnormal Lab Findings Abnormal Lab Findings: Abnormal Lab Results 12/03/17 12/03/17 12/03/17 Range/Units 05:53 05:53 05:53 RBC 4.06 L (4.2-5.4) M/mm3 Hgb 10.9 L (12.5-16.0) gm/dL Hct 34.2 L (37.0-47.0) % MCH 26.8 L (27-31) pg MCHC 31.9 L (32-36) g/dl RDW 16.4 H (11.5-14.0) % MPV 10.0 H (6.0-9.5) fl Immature Gran % (Auto) 1.20 H (0.001-0.429) % Immature Gran # (Auto) 0.11 H (0.000-0.0310) K/mm3 Neutrophils % 91.6 H (42-75.0) % Lymphocytes % 4.5 L (20-51) % Neutrophils # 8.5 H (1.3-6.0) K/mm3 Lymphocytes # 0.4 L (1.5-3.5) k/mm3 PT 34.6 H (9.0-11.0) Seconds INR (Anticoag Therapy) 3.42 H (0.90-1.10) INR Anion Gap 13.9 H (6.8-13.8) mmol/L BUN 28 H (3-23) mg/dL Est GFR (Non-Af Amer) 45 L D (60-130) mL/min BUN/Creatinine Ratio 22.8 H (9.0-21.6) Random Glucose 162 H (70-110) mg/dL B-Natriuretic Peptide (5-550) pg/mL Albumin 3.0 L (3.4-5.0) gm/dl Procalcitonin (0.05-0.50) ng/mL 12/03/17 12/03/17 Range/Units 06:00 06:00 RBC (4.2-5.4) M/mm3 Hgb (12.5-16.0) gm/dL Hct (37.0-47.0) % MCH (27-31) pg MCHC (32-36) g/dl RDW (11.5-14.0) % MPV (6.0-9.5) fl Immature Gran % (Auto) (0.001-0.429) % Immature Gran # (Auto) (0.000-0.0310) K/mm3 Neutrophils % (42-75.0) % Lymphocytes % (20-51) % Neutrophils # (1.3-6.0) K/mm3 Lymphocytes # (1.5-3.5) k/mm3 PT (9.0-11.0) Seconds INR (Anticoag Therapy) (0.90-1.10) INR Anion Gap (6.8-13.8) mmol/L BUN (3-23) mg/dL Est GFR (Non-Af Amer) (60-130) mL/min BUN/Creatinine Ratio (9.0-21.6) Random Glucose (70-110) mg/dL B-Natriuretic Peptide 4124 H (5-550) pg/mL Albumin (3.4-5.0) gm/dl Procalcitonin 7.95 H (0.05-0.50) ng/mL - Exam Constitutional: Present: Alert, Oriented x3, No distress Respiratory: Present: rales, No wheezing Cardiovascular/Chest: Present: regular rate, rhythm Abdomen: Present: soft, nontender Extremity: Present: no pedal edema Skin Exam: Present: normal color, warm/dry, no cyanosis Assessment/Plan - Problems/Diagnosis (1) Pulmonary hypertension Problem: Chronic (2) CHF exacerbation Problem: Acute Qualifiers: Congestive heart failure type: diastolic Qualified Code(s): I50.33 - Acute on chronic diastolic (congestive) heart failure Narrative: CHF with normal ejection fraction Chest x-ray markedly improved CHF finding BNP was 7000 now down to 4000 (3) COPD (chronic obstructive pulmonary disease) Problem: Acute (4) Bacteremia Problem: Acute Narrative: Her blood culture grew 2 out of 2 Streptococcus pneumonia Pro-calcitonin was markedly elevated at 12 now down to 7.9 (5) Sepsis Problem: Acute Qualifiers: Sepsis type: Pneumococcus Qualified Code(s): A40.3 - Sepsis due to Streptococcus pneumoniae Narrative: Streptococcus pneumonia resistance to erythromycin With stop azithromycin Continue Rocephin and was start Levaquin
[2017-12-03] MEDS: SPIRONOLACTONE 25 MG TABLET PO SCH (11:16)
[2017-12-03] MEDS ORDERED: WARFARIN SODIUM 1 TAB TAB PO SCH (17:00)
[2017-12-03] MEDS: ALBUTEROL SULFATE 2.5 MG/0.5 ML VIAL.NEB IH PRN (21:11)
[2017-12-03] MEDS: Macitentan [Opsumit] 10 MG PO SCH (21:23)
[2017-12-03] MEDS: ZOLPIDEM TARTRATE 5 MG TABLET PO PRN (21:29)
[2017-12-04 05:47] LABS: Hematocrit 33.7 % (37.0-47.0); Hemoglobin 10.8 gm/dL (12.5-16.0); Mean Cell Volume 83.6 fl (78-100); Mean Corpuscular Hemoglobin 26.8 pg (27-31); Mean Platelet Volume 9.6 fl (6.0-9.5); Neutrophil # 5.9 K/mm3 (1.3-6.0); Neutrophil % 76.8 % (42-75.0); Platelet Count 162 K/mm3 (150-450); Red Blood Count 4.03 M/mm3 (4.2-5.4); Red Cell Distribution Width 16.2 % (11.5-14.0); White Blood Count 7.7 K/mm3 (4.0-10.5)
[2017-12-04 06:00] LABS: Prothrombin Time (Patient) 25.3 Seconds (9.0-11.0)
[2017-12-04 06:13] LABS: Albumin * 2.9 gm/dl (3.4-5.0); Anion Gap 10.6 mmol/L (6.8-13.8); BUN/Creatinine Ratio 26.1 (9.0-21.6); Bilirubin, Total 0.2 mg/dL (0.0-1.1); Ca. Corrected For Albumin 9.1 mg/dL (8.4-10.2); Calcium * 8.5 mg/dL (7.9-10.9); Carbon Dioxide 31.5 mmol/L (24-32.6); INR 2.51 INR (0.90-1.10); Potassium 3.1 mmol/L (3.4-4.6); Total Protein 6.9 gm/dL (6.2-8.2)
[2017-12-04] MEDS ORDERED: POTASSIUM CHLORIDE 20 MEQ TABLET.SA PO ONE (06:46)
[2017-12-04] MEDS: PANTOPRAZOLE SODIUM 40 MG TABLET.EC PO SCH (07:20)
[2017-12-04] MEDS: TREPROSTINIL IH SCH ×6 (07:21→20:53)
[2017-12-04] MEDS: SPIRONOLACTONE 25 MG TABLET PO SCH (08:45)
[2017-12-04] MEDS: ASPIRIN 81 MG TABLET.DR PO SCH (08:46)
[2017-12-04] MEDS: FUROSEMIDE 80 MG TABLET PO SCH (08:46)
[2017-12-04] MEDS: NYSTATIN 60 ML BTL PO SCH ×3 (08:48→20:58)
[2017-12-04] MEDS: predniSONE 20 MG TABLET PO SCH (08:49)
[2017-12-04] MEDS: INCRUSE ELLIPTA PO SCH (08:49)
[2017-12-04] MEDS: BREO ELLIPTA PO SCH (08:49)
[2017-12-04] MEDS: TADALAFIL 40 MG PO SCH (08:50)
[2017-12-04] MEDS: SIMVASTATIN 20 MG TABLET PO SCH (08:50)
[2017-12-04] MEDS: cefTRIAXone SODIUM 1,000 MG in DEXTROSE 5 % IN WATER 50 ML IV SCH ×2 (09:54)
[2017-12-04] MEDS: LEVOFLOXACIN 750 MG TABLET PO SCH (12:51)
--- NOTE | 2017-12-04 14:48 | PN ---
Subjective - Date and Time Seen Date: 12/04/17 Time: 10:00 Subjective Narrative: Patient seen and examined at bedside. Patient resting comfortably in bedside chair at the time of my exam. No acute issues overnight. Patient denies any new issues or concerns this AM. Objective - Review of Systems Generalized/Overall Review: Reports: No Symptoms Reported EENTM: Reports: No Symptoms Reported Respiratory: Reports: Cough Cardiac: Reports: No Symptoms Reported Abdominal: Reports: No Symptoms Reported Genitourinary Symptoms: Reports: No Symptoms Reported Musculoskeletal Complaints: Reports: No Symptoms Reported Neurological: Reports: No Symptoms Reported Skin: Reports: No Symptoms Reported Endocrine: Reports: No Symptoms Reported Misc: All systems neg except as marked - Vitals Vitals: Last Vital Signs Temp 37.0 C 12/04/17 13:48 Pulse 68 12/04/17 13:48 Resp 12 12/04/17 13:48 BP 179/61 12/04/17 13:48 Pulse Ox 94 12/04/17 13:48 - Abnormal Lab Findings Abnormal Lab Findings: Abnormal Lab Results 12/04/17 12/04/17 12/04/17 Range/Units 05:35 05:35 05:35 RBC 4.03 L (4.2-5.4) M/mm3 Hgb 10.8 L (12.5-16.0) gm/dL Hct 33.7 L (37.0-47.0) % MCH 26.8 L (27-31) pg RDW 16.2 H (11.5-14.0) % MPV 9.6 H (6.0-9.5) fl Immature Gran % (Auto) 0.90 H (0.001-0.429) % Immature Gran # (Auto) 0.07 H (0.000-0.0310) K/mm3 Neutrophils % 76.8 H (42-75.0) % Lymphocytes % 14.2 L (20-51) % Lymphocytes # 1.1 L (1.5-3.5) k/mm3 PT 25.3 H (9.0-11.0) Seconds INR (Anticoag Therapy) 2.51 H (0.90-1.10) INR Potassium 3.1 L (3.4-4.6) mmol/L BUN 31 H (3-23) mg/dL Est GFR (Non-Af Amer) 47 L (60-130) mL/min BUN/Creatinine Ratio 26.1 H (9.0-21.6) B-Natriuretic Peptide 4289 H (5-550) pg/mL Albumin 2.9 L (3.4-5.0) gm/dl Procalcitonin (0.05-0.50) ng/mL 12/04/17 Range/Units 05:35 RBC (4.2-5.4) M/mm3 Hgb (12.5-16.0) gm/dL Hct (37.0-47.0) % MCH (27-31) pg RDW (11.5-14.0) % MPV (6.0-9.5) fl Immature Gran % (Auto) (0.001-0.429) % Immature Gran # (Auto) (0.000-0.0310) K/mm3 Neutrophils % (42-75.0) % Lymphocytes % (20-51) % Lymphocytes # (1.5-3.5) k/mm3 PT (9.0-11.0) Seconds INR (Anticoag Therapy) (0.90-1.10) INR Potassium (3.4-4.6) mmol/L BUN (3-23) mg/dL Est GFR (Non-Af Amer) (60-130) mL/min BUN/Creatinine Ratio (9.0-21.6) B-Natriuretic Peptide (5-550) pg/mL Albumin (3.4-5.0) gm/dl Procalcitonin 5.08 H (0.05-0.50) ng/mL - Exam Constitutional: Present: Alert, Oriented x3, Cooperative, No distress ENT Exam: Present: moist mucous membranes Respiratory: Present: no respiratory distress, no accessory muscle use Cardiovascular/Chest: Present: regular rate, rhythm, edema Abdomen: Present: soft, nontender, nondistended Extremity: Present: pedal edema Skin Exam: Present: warm/dry Neurologic: Present: alert, normal mood/affect, oriented x 3 Appearance: Present: appropriate appearance, appropriate insight, neat Eye contact: Present: cooperative, good eye contact, normal speech Thoughts: Present: normal thought pattern, no apparent hallucination Assessment/Plan Plan Narrative: Patient will remain in the hospital through the weekend while she is receiving IV antibiotics for treatment of her bacteremia. Plan is for potentially discharge home on 12/06/2016. - Problems/Diagnosis (1) Bacteremia Problem: Acute (2) COPD (chronic obstructive pulmonary disease) Problem: Chronic Qualifiers: COPD type: COPD with acute exacerbation Qualified Code(s): J44.1 - Chronic obstructive pulmonary disease with (acute) exacerbation (3) Sepsis Problem: Acute Qualifiers: Sepsis type: Pneumococcus Qualified Code(s): A40.3 - Sepsis due to Streptococcus pneumoniae (4) Shortness of breath Problem: Acute (5) Bronchitis Problem: Chronic (6) Pulmonary hypertension Problem: Chronic (7) CHF exacerbation Problem: Acute Qualifiers: Congestive heart failure type: diastolic Qualified Code(s): I50.33 - Acute on chronic diastolic (congestive) heart failure
[2017-12-04] MEDS ORDERED: WARFARIN SODIUM 2 MG TABLET PO SCH (17:00)
[2017-12-04] MEDS: Macitentan [Opsumit] 10 MG PO SCH (20:54)
[2017-12-04] MEDS: ZOLPIDEM TARTRATE 5 MG TABLET PO PRN (20:57)
[2017-12-04] MEDS: ALBUTEROL SULFATE 2.5 MG/0.5 ML VIAL.NEB IH PRN (20:59)
[2017-12-04] MEDS ORDERED: ACETAMINOPHEN 325 MG TABLET PO PRN (23:10)
[2017-12-04] MEDS ORDERED: ACETAMINOPHEN 325 MG TABLET ONE (23:37)
[2017-12-05] MEDS ORDERED: ZOLPIDEM TARTRATE 5 MG TABLET PO ONE (02:54)
[2017-12-05] MEDS: ALBUTEROL SULFATE 2.5 MG/0.5 ML VIAL.NEB IH PRN ×2 (05:28→19:53)
[2017-12-05 05:39] LABS: Hematocrit 31.9 % (37.0-47.0); Hemoglobin 10.2 gm/dL (12.5-16.0); Mean Cell Volume 82.6 fl (78-100); Mean Corpuscular Hemoglobin 26.4 pg (27-31); Mean Platelet Volume 9.1 fl (6.0-9.5); Neutrophil # 2.5 K/mm3 (1.3-6.0); Neutrophil % 53.1 % (42-75.0); Platelet Count 151 K/mm3 (150-450); Red Blood Count 3.86 M/mm3 (4.2-5.4); Red Cell Distribution Width 16.1 % (11.5-14.0); White Blood Count 4.7 K/mm3 (4.0-10.5)
[2017-12-05 05:46] LABS: Prothrombin Time (Patient) 20.7 Seconds (9.0-11.0)
[2017-12-05 05:47] LABS: Anion Gap 7.8 mmol/L (6.8-13.8); BUN/Creatinine Ratio 22.6 (9.0-21.6); Calcium * 8.1 mg/dL (7.9-10.9); Carbon Dioxide 32.6 mmol/L (24-32.6); Potassium 3.4 mmol/L (3.4-4.6)
[2017-12-05 05:50] LABS: INR 2.05 INR (0.90-1.10)
[2017-12-05] MEDS: PANTOPRAZOLE SODIUM 40 MG TABLET.EC PO SCH (06:40)
[2017-12-05] MEDS: TREPROSTINIL IH SCH ×6 (06:41→20:15)
[2017-12-05] MEDS: NYSTATIN 60 ML BTL PO SCH ×5 (08:14→20:15)
[2017-12-05] MEDS: FUROSEMIDE 80 MG TABLET PO SCH (09:04)
[2017-12-05] MEDS: ASPIRIN 81 MG TABLET.DR PO SCH (09:04)
[2017-12-05] MEDS: SPIRONOLACTONE 25 MG TABLET PO SCH (09:04)
[2017-12-05] MEDS: INCRUSE ELLIPTA PO SCH (09:05)
[2017-12-05] MEDS: BREO ELLIPTA PO SCH (09:05)
[2017-12-05] MEDS: predniSONE 20 MG TABLET PO SCH (09:06)
[2017-12-05] MEDS: TADALAFIL 40 MG PO SCH (09:07)
[2017-12-05] MEDS: SIMVASTATIN 20 MG TABLET PO SCH (09:08)
[2017-12-05] MEDS: cefTRIAXone SODIUM 1,000 MG in DEXTROSE 5 % IN WATER 50 ML IV SCH ×2 (09:19)
--- NOTE | 2017-12-05 10:49 | PN ---
Subjective - Date and Time Seen Date: 12/05/17 Time: 10:00 Subjective Narrative: Patient seen and examined at bedside. Patient resting comfortably in bedside chair at the time of my exam. No acute issues overnight. Patient denies any new issues or concerns this AM. Objective - Review of Systems Generalized/Overall Review: Reports: No Symptoms Reported EENTM: Reports: No Symptoms Reported Respiratory: Reports: Cough Cardiac: Reports: No Symptoms Reported Abdominal: Reports: No Symptoms Reported Genitourinary Symptoms: Reports: No Symptoms Reported Musculoskeletal Complaints: Reports: No Symptoms Reported Neurological: Reports: No Symptoms Reported Skin: Reports: No Symptoms Reported Endocrine: Reports: No Symptoms Reported Misc: All systems neg except as marked - Vitals Vitals: Last Vital Signs Temp 36.6 C 12/05/17 08:42 Pulse 67 12/05/17 09:04 Resp 18 12/05/17 08:42 BP 152/72 12/05/17 09:04 Pulse Ox 98 12/05/17 08:42 - Abnormal Lab Findings Abnormal Lab Findings: Abnormal Lab Results 12/05/17 12/05/17 12/05/17 Range/Units 05:10 05:10 05:10 RBC 3.86 L (4.2-5.4) M/mm3 Hgb 10.2 L (12.5-16.0) gm/dL Hct 31.9 L (37.0-47.0) % MCH 26.4 L (27-31) pg RDW 16.1 H (11.5-14.0) % Immature Gran % (Auto) 3.40 H (0.001-0.429) % Immature Gran # (Auto) 0.16 H (0.000-0.0310) K/mm3 Monocytes % 14.2 H (0.0-9) % Lymphocytes # 1.3 L (1.5-3.5) k/mm3 PT 20.7 H (9.0-11.0) Seconds INR (Anticoag Therapy) 2.05 H (0.90-1.10) INR BUN 24 H (3-23) mg/dL Est GFR (Non-Af Amer) 53 L (60-130) mL/min BUN/Creatinine Ratio 22.6 H (9.0-21.6) - Exam Constitutional: Present: Alert, Oriented x3, Cooperative, No distress ENT Exam: Present: moist mucous membranes Cardiovascular/Chest: Present: regular rate, rhythm, edema Abdomen: Present: soft, nontender, nondistended Extremity: Present: pedal edema Skin Exam: Present: warm/dry Neurologic: Present: alert, normal mood/affect, oriented x 3 Appearance: Present: appropriate appearance, appropriate insight, neat Eye contact: Present: cooperative, good eye contact, normal speech Thoughts: Present: normal thought pattern, no apparent hallucination Assessment/Plan Plan Narrative: Patient will remain in the hospital through the weekend while she is receiving IV antibiotics for treatment of her bacteremia. Plan is for potentially discharge home tomorrow, 12/06/2016. Dr. Monzon to resume care tomorrow. - Problems/Diagnosis (1) Bacteremia Problem: Acute (2) COPD (chronic obstructive pulmonary disease) Problem: Chronic Qualifiers: COPD type: COPD with acute exacerbation Qualified Code(s): J44.1 - Chronic obstructive pulmonary disease with (acute) exacerbation (3) Sepsis Problem: Acute Qualifiers: Sepsis type: Pneumococcus Qualified Code(s): A40.3 - Sepsis due to Streptococcus pneumoniae (4) Shortness of breath Problem: Acute (5) Bronchitis Problem: Chronic (6) Pulmonary hypertension Problem: Chronic (7) CHF exacerbation Problem: Acute Qualifiers: Congestive heart failure type: diastolic Qualified Code(s): I50.33 - Acute on chronic diastolic (congestive) heart failure
[2017-12-05] MEDS: LEVOFLOXACIN 750 MG TABLET PO SCH (11:01)
[2017-12-05] MEDS ORDERED: METOLAZONE 5 MG TABLET PO ONE (12:02)
[2017-12-05] MEDS: ENALAPRIL MALEATE 5 MG TABLET PO SCH (14:13)
[2017-12-05] MEDS ORDERED: WARFARIN SODIUM 3 MG TABLET PO SCH (17:00)
[2017-12-05] MEDS: Macitentan [Opsumit] 10 MG PO SCH (20:14)
[2017-12-05] MEDS: ZOLPIDEM TARTRATE 5 MG TABLET PO PRN (20:15)
[2017-12-06 05:57] LABS: Hematocrit 37.3 % (37.0-47.0); Hemoglobin 11.9 gm/dL (12.5-16.0); Mean Cell Volume 82.9 fl (78-100); Mean Corpuscular Hemoglobin 26.4 pg (27-31); Mean Corpuscular Hgb Conc 31.9 g/dl (32-36); Mean Platelet Volume 9.7 fl (6.0-9.5); Platelet Count 175 K/mm3 (150-450); Red Cell Distribution Width 16.4 % (11.5-14.0); White Blood Count 6.3 K/mm3 (4.0-10.5)
[2017-12-06 06:06] LABS: Prothrombin Time (Patient) 16.9 Seconds (9.0-11.0)
[2017-12-06 06:07] LABS: Total Cells Counted 100
[2017-12-06 06:12] LABS: INR 1.68 INR (0.90-1.10)
[2017-12-06 06:15] LABS: Atypical (Reactive) Lymph 2 % (0-2); Band 2 % (0-2.0); Eosinophil 1 % (0-3); Immature Granulocyte 1 (0-1); Lymphocyte 48 % (20-51); Monocyte 2 % (0-9); Neutrophil 44 % (42-75); Neutrophil # 2.8 K/mm3 (1.3-6.0); Platelet Estimate Normal (NORMAL); RBC Morphology Normal (NORMAL)
[2017-12-06 06:20] LABS: Anion Gap 6.5 mmol/L (6.8-13.8); BUN/Creatinine Ratio 19.3 (9.0-21.6); Calcium * 8.7 mg/dL (7.9-10.9); Carbon Dioxide 35.7 mmol/L (24-32.6); Estimated Creat Clear 31.6; Potassium 3.2 mmol/L (3.4-4.6)
[2017-12-06] MEDS: PANTOPRAZOLE SODIUM 40 MG TABLET.EC PO SCH (06:31)
[2017-12-06] MEDS: SPIRONOLACTONE 25 MG TABLET PO SCH (08:19)
[2017-12-06] MEDS: ASPIRIN 81 MG TABLET.DR PO SCH (08:20)
[2017-12-06] MEDS: NYSTATIN 60 ML BTL PO SCH (08:20)
[2017-12-06] MEDS: FUROSEMIDE 80 MG TABLET PO SCH (08:20)
[2017-12-06] MEDS: predniSONE 20 MG TABLET PO SCH (08:21)
[2017-12-06] MEDS: cefTRIAXone SODIUM 1,000 MG in DEXTROSE 5 % IN WATER 50 ML IV SCH ×2 (08:21)
[2017-12-06] MEDS: INCRUSE ELLIPTA PO SCH (08:21)
[2017-12-06] MEDS: BREO ELLIPTA PO SCH (08:21)
[2017-12-06] MEDS: TREPROSTINIL IH SCH (08:22)
[2017-12-06] MEDS: TADALAFIL 40 MG PO SCH (08:22)
[2017-12-06] MEDS: SIMVASTATIN 20 MG TABLET PO SCH (08:23)
[2017-12-06] MEDS: ENALAPRIL MALEATE 5 MG TABLET PO SCH (08:23)
--- NOTE | 2017-12-06 09:14 | DS ---
(1) Pulmonary hypertension Problem: Chronic (2) CHF exacerbation Problem: Acute Qualifiers: Congestive heart failure type: diastolic Qualified Code(s): I50.33 - Acute on chronic diastolic (congestive) heart failure (3) COPD (chronic obstructive pulmonary disease) Problem: Chronic Qualifiers: COPD type: COPD with acute exacerbation Qualified Code(s): J44.1 - Chronic obstructive pulmonary disease with (acute) exacerbation (4) Bacteremia Problem: Acute (5) Sepsis Problem: Acute Qualifiers: Sepsis type: Pneumococcus Qualified Code(s): A40.3 - Sepsis due to Streptococcus pneumoniae Description of Stay: 77-year-old white female was admitted through the emergency room markedly short of breath, pain and bloody and purulent phlegm with leukocytosis and elevated lactic acid. He she was treated with antibiotics and Solu-Medrol. She was admitted blood culture grew Streptococcus pneumonia 2 out of 2 and pro- calcitonin markedly elevated at 15. Chest x-ray show findings consistent with congestive heart failure Lasix dose was adjusted on day to day basis. Echocardiogram showed normal ejection fraction pulmonary hypertension and diastolic dysfunction. She was treated with Rocephin and Levaquin. On the day of discharge she is feeling and breathing better BNP was markedly elevated then went down more than 50%. Pro-calcitonin was markedly elevated and this also went down to almost normal. She will be discharged today and follow-up will be in 1 week Procedures Performed: none Discharge Disposition: Home self care Disposition: Home self-care Condition: Stable Discharge Activity: Activity as tolerated Discharge Diet: Low salt Referrals: Errol Monzon MD [Primary Care Provider] - Problem Oriented Discharge Instructions to Patient/Family: Chronic Obstructive Pulmonary Disease Exacerbation, [id number], Pulmonary Hypertension, Heart Failure, [id number], Bacteremia Additional Patient Instructions (free text): Follow up with Dr. Monzon WednesdayDecember 13 @ 0900 CMP & BNP- walk in no appointment needed (outpatient registration) Chest CT W/O contrast & Chest X-ray WednesdayDecember 08 @ 0900 arrive @ 0830 Please make TCM appointment unless senior care discharge. Thank you! Merly Prescriptions (Any new or edited meds): Enalapril Maleate [Vasotec] 10 mg PO DAILY #60 tablet Levofloxacin [Levaquin] 750 mg PO DAILY@1100 14 Days tablet Nystatin [Mycostatin 100 Mu/Ml Suspension] 5 ml PO QID #100 btl Pantoprazole Sodium [Protonix] 40 mg PO DAILY@0700 30 Days tablet. Potassium Chloride [Klor-Con 10] 10 meq PO BID #60 tab predniSONE [Prednisone] 40 mg PO DAILY #10 tablet Spironolactone [Aldactone] 25 mg PO DAILY 90 Days tablet Complete Home Medications List: Complete Home Medication List: Simvastatin 20 mg PO DAILY 10/13/13 Albuterol Sulfate [Albuterol Sulfate 2.5 MG/0.5ML] 2.5 mg IH Q4HRT PRN #0 vial.neb 10/15/13 Zolpidem Tartrate [Ambien] 5 mg PO HS PRN #0 tablet 10/15/13 Warfarin Sodium [Coumadin] 5 mg PO DAILY 10/16/13 Aspirin [Aspirin Enteric Coated] 81 mg PO DAILY 12/09/13 Furosemide [Lasix] 80 mg PO DAILY 12/09/13 Macitentan [Opsumit] 10 mg PO DAILY 01/12/17 Tadalafil [Adcirca] 40 mg PO DAILY 01/12/17 Treprostinil [Tyvaso] 12 puff IH QID 01/12/17 Fluticasone/Vilanterol [Breo Ellipta 100-25 Mcg INH] 1 inh INH DAILY 12/01/17 Umeclidinium [place] [Incruse Ellipta] 62.5 mcg IH DAILY 12/01/17 Enalapril Maleate [Vasotec] 10 mg PO DAILY #60 tablet 12/06/17 Levofloxacin [Levaquin] 750 mg PO DAILY@1100 14 Days tablet 12/06/17 Nystatin [Mycostatin 100 Mu/Ml Suspension] 5 ml PO QID #100 btl 12/06/17 Pantoprazole Sodium [Protonix] 40 mg PO DAILY@0700 30 Days tablet. 12/06/17 Potassium Chloride [Klor-Con 10] 10 meq PO BID #60 tab 12/06/17 Spironolactone [Aldactone] 25 mg PO DAILY 90 Days tablet 12/06/17 Warfarin Sodium [Coumadin] 3 mg PO DAILY@1700 tablet 12/06/17 predniSONE [Prednisone] 40 mg PO DAILY #10 tablet 12/06/17 Amb Orders for Discharge: CT Chest W/O Time Frame: 12/07/17, Location: Determined By Patient BNP * Time Frame: 12/13/17, Location: Determined By Patient CBC Time Frame: 12/13/17, Location: Determined By Patient Comprehensive Metabolic Panel Time Frame: 12/13/17, Location: Determined By Patient Chest PA & Lateral * Time Frame: 12/13/17, Location: Determined By Patient
[2017-12-06] MEDS ORDERED: METOLAZONE 5 MG TABLET PO SCH ×2 (10:15→10:30)
[2017-12-06 10:20] VITALS: BP 125/63
[2017-12-06] MEDS: LEVOFLOXACIN 750 MG TABLET PO SCH (10:26)
[2017-12-06] MEDS ORDERED: WARFARIN SODIUM 5 MG TABLET PO SCH (17:00)
--- NOTE | 2017-12-07 08:05 | ECHO ---
This report is available in the EMR
== END 2017-12-06 13:59 | disposition home or self-care (01) | DRG 871 ==
LOC: ER 06:38 → MS 10:15
PROVIDERS: ADMIT Internal Medicine; ATTEND Internal Medicine
PROC: B246ZZZ Ultrasonography of Right and Left Heart (ICD-10-PCS; principal; 2017-12-01)
PROC: 4A033R1 Measurement of Arterial Saturation, Peripheral, Percutaneous Approach (ICD-10-PCS; 2017-12-01)
DX: Z79.01 Long term (current) use of anticoagulants; I50.33 Acute on chronic diastolic (congestive) heart failure; M34.9 Systemic sclerosis, unspecified; Z79.82 Long term (current) use of aspirin; I10 Essential (primary) hypertension; D72.829 Elevated white blood cell count, unspecified; E78.5 Hyperlipidemia, unspecified; J44.1 Chronic obstructive pulmonary disease with (acute) exacerbation; Z95.1 Presence of aortocoronary bypass graft; I27.21 Secondary pulmonary arterial hypertension; A40.3 Sepsis due to Streptococcus pneumoniae

== ENCOUNTER 2018-07-11 06:14 | Inpatient (IN) | payer BC, MEDICARE ==
[2018-07-11] MEDS ORDERED: ALBUTEROL SULFATE/IPRATROPIUM 3 ML NEBU IH ONE ×3 (06:20→06:39)
[2018-07-11] MEDS ORDERED: METHYLPREDNISOLONE SOD SUCC/PF 125 MG/2 ML VIAL IV ONE (06:39)
[2018-07-11] MEDS ORDERED: METHYLPREDNISOLONE SOD SUCC/PF 125 MG/2 ML VIAL ONE (06:53)
--- NOTE | 2018-07-11 07:09 | ERNOTE ---
Dyspnea - Date Date of Service: 07/11/18 - General Presenting Symptoms: shortness of breath, difficulty of breathing Time Seen by Provider: 07/11/18 06:20 Source: patient, family, EMS Exam Limitations: no limitations - Immun/Allergies/Home Medications Immunizations: IMMUNIZATION HX Immunizations Up to Date Yes History of Influenza Vaccine Yes Hx Pneumococcal Vaccination Yes Allergies/Adverse Reactions: Allergies tramadol Allergy (Severe, Verified 06/20/18 21:30) Swelling of Throat sulfamethoxazole [From Bactrim] Allergy (Unknown, Verified 06/20/18 21:30) Hives trimethoprim [From Bactrim] Allergy (Unknown, Verified 06/20/18 21:30) Hives Home Medications: HOME MEDICATIONS Fluticasone/Vilanterol [Breo Ellipta 100-25 Mcg INH] 1 each IH QAM 06/20/18 [ Last Taken 06/20/18 08:00] Furosemide [Lasix] 80 mg PO DAILY 06/20/18 [Last Taken 06/20/18 08:00] HYDROcodone/ACETAMINOPHEN [[place] 5-325 Tablet] 1 tab PO Q6H PRN 06/20/18 [Last Taken Unknown] Macitentan [Opsumit] 10 mg PO QAM 06/20/18 [Last Taken 06/20/18 08:00] Metoprolol Succinate 12.5 mg PO QAM 06/20/18 [Last Taken 06/20/18 08:00] Pregabalin [Lyrica] 50 mg PO DAILY PRN 06/20/18 [Last Taken Unknown] Sildenafil Citrate [Revatio] 40 mg PO TID 06/20/18 [Last Taken Unknown] Treprostinil [Tyvaso] 12 puff INH QID 06/20/18 [Last Taken Unknown] Umeclidinium [place] [Incruse Ellipta] 62.5 mcg IH QAM 06/20/18 [Last Taken 08:00] Warfarin Sodium [Coumadin] 3 mg PO PRN PRN 06/20/18 [Last Taken Unknown] Warfarin Sodium [Coumadin] 5 mg PO QPM 06/20/18 [Last Taken 06/20/18 18:00] Zolpidem Tartrate [Ambien] 10 mg PO HS 06/20/18 [Last Taken Unknown] morphine ER 15 mg tablet,extended release 15 mg PO ONCE #30 tab 07/08/18 [Last Taken Unknown] - History of Present Illness Narrative: patient presents per ambulance with hx of severe end stage copd and end stage pulmonary hypertension Severity: severe 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, paramedics, albuterol Initiating event: Reports: upper resp illness Frequency of episodes: Reports: frequent episodes Modifying Factors - (Improves): Reports: albuterol Modifying Factors (Worsens): Reports: activity Associated Symptoms-Dyspnea: Reports: denies symptoms Prior Treatment: Reports: recently seen, treated by physician, recently hospitalized Review of Systems - Narrative Narrative: hx of copd - Review of Systems Constitutional: Present: See HPI, fatigue, malaise EYE: Present: no symptoms reported ENT: Present: no symptoms reported Respiratory: Present: See HPI, shortness of breath, cough, wheezing Cardiology: Present: no symptoms reported Gastrointestinal/Abdominal: Present: no symptoms reported Genitourinary: Present: no symptoms reported Musculoskeletal: Present: no symptoms reported Skin: Present: no symptoms reported Neurological: Present: no symptoms reported Endocrine: Present: no symptoms reported Hematologic/Lymphatic: Present: no symptoms reported Psych: Present: no symptoms reported All Other Systems: All systems neg except as marked Medical History (Last Updated 06/28/18 @ 10:12 by Deepa Medley) Deep vein thrombosis (DVT) (Chronic) Onset Date: Unknown Pulmonary hypertension (Chronic) Onset Date: ~11/21/14 GRAHAM (obstructive sleep apnea) (Chronic) Onset Date: Unknown Hyperlipidemia (Chronic) Onset Date: Unknown Essential hypertension (Chronic) Onset Date: Unknown COPD (chronic obstructive pulmonary disease) (Chronic) Onset Date: ~11/19/14 Chronic respiratory failure with hypoxia Lower extremity edema Onset Date: ~10/2014 Lung mass Onset Date: ~2017 Occlusion and stenosis of unspecified carotid artery Onset Date: ~05/06/06 Onycholysis Onset Date: ~09/28/12 Onychomycosis Onset Date: ~09/28/12 Peripheral vascular disease Onset Date: ~05/06/06 Pulmonary artery hypertension Onset Date: ~06/22/18 Raynauds disease Onset Date: Unknown Scleroderma Onset Date: Unknown Sialoadenitis Onset Date: ~08/22/15 Systemic lupus erythematosus Onset Date: ~02/12/14 Systemic sclerosis with limited cutaneous involvement Onset Date: ~08/22/14 H/O echocardiogram Onset Date: ~06/22/18 Squamous cell carcinoma of right lung Onset Date: ~03/31/18 Surgical History: Surgical History (Last Reviewed 06/20/18 @ 21:29 by Merly Fraire RN) H/O colonoscopy Onset Date: ~04/2008 History of appendectomy Onset Date: Unknown History of cataract surgery Onset Date: Unknown History of hysterectomy Onset Date: ~1959 S/P aortobifemoral bypass surgery Onset Date: ~1999 Family History: Family History (Last Reviewed 06/20/18 @ 21:30 by Merly Fraire RN) Father Lung cancer Social History: Preferred Language Angolan Abuse History No History of abuse Psych History No pertinent hx Alcohol Use none Drug Use none Physical Exam - Physical Exam General Appearance: Present: severe distress, anxious Head Exam: Present: normal inspection, no evidence of injury Eye Exam: Normal inspection: bilateral, PERRL: bilateral, EOMI: bilateral Ears, Nose, Throat: Present: normal ENT inspection, normal pharynx Neck: Present: normal inspection, nontender Respiratory: Present: respiratory distress, decreased breath sounds, crackles, rales, rhonchi, wheezing Cardiovascular/Chest: Present: regular rate, rhythm, no murmur, normal peripheral pulses Gastrointestinal/Abdominal: Present: normal bowel sounds, nontender, nondistended, soft, no organomegaly Back Exam: Present: normal inspection, normal range of motion, no CVA tenderness , no vertebral tenderness Extremity Exam: Present: normal inspection, non-tender, normal range of motion, no edema Neurological Exam: Present: alert, oriented, normal mood/affect, no motor/ sensory deficits Skin Exam: Present: pallor Lymphatic Exam: Present: no adenopathy ED Progress - Date and Time Seen: Date and Time: 07/11/18 07:49 patient improved somewhat, patient refuses bi-pap, family maintains dnr status to be admitted - Results and Orders Patient's Lab Results:: I have reviewed the patient's lab results. - Vital Signs Patient's Vital Signs:: I have reviewed the patient's vital signs. Vital Signs: Vital Signs 07/11/18 06:20 07/11/18 06:37 07/11/18 06:50 Temperature 37.9 C Pulse Rate 106 H 106 H 106 H Respiratory Rate 27 H 27 H 28 H Blood Pressure 123/53 123/56 O2 Sat by Pulse Oximetry 89 L 87 L 97 - EKG EKG: NSR - X-Ray X-Ray #1 X-Ray: chest Interpretation: Discd w/ radiologist - copd increased interstitial edema - Progress/Reassessment Chief Complaint: Dyspnea Progress:: Improved - Transfer of Care Physician Sign Out: Nelson Malik Receiving Physician: Shyam Ibrahim Expected Disposition: Admit Plan - Plan Plan: to be admitted Departure Clinical Impression: COPD (chronic obstructive pulmonary disease) - Departure Disposition: Still a patient Condition: Serious Referrals: Errol Monzon MD [Primary Care Provider] -
[2018-07-11 07:38] LABS: Hematocrit 32.1 % (37.0-47.0); Hemoglobin 10.1 gm/dL (12.5-16.0); Mean Cell Volume 96.1 fl (78-100); Mean Corpuscular Hemoglobin 30.2 pg (27-31); Mean Corpuscular Hgb Conc 31.5 g/dl (32-36); Mean Platelet Volume 9.9 fl (8-12.5); Neutrophil # 9.5 K/mm3 (1.3-6.0); Neutrophil % 89.2 % (42-75.0); Platelet Count 137 K/mm3 (150-450); Red Blood Count 3.34 M/mm3 (4.2-5.4); Red Cell Distribution Width 19.3 % (11.5-14.0); White Blood Count 10.7 K/mm3 (4.0-10.5)
[2018-07-11 07:39] LABS: Albumin * 2.7 gm/dl (3.4-5.0); Anion Gap 7.1 mmol/L (6.8-13.8); BUN/Creatinine Ratio 24.2 (9.0-21.6); Bilirubin, Total 0.6 mg/dL (0.0-1.1); Ca. Corrected For Albumin 9.3 mg/dL (8.4-10.2); Calcium * 8.6 mg/dL (7.9-10.9); Carbon Dioxide 37.4 mmol/L (24-32.6); Potassium 3.5 mmol/L (3.4-4.6); Total Protein 6.7 gm/dL (6.2-8.2)
[2018-07-11] MEDS ORDERED: FUROSEMIDE 10 MG/ML VIAL IV ONE (07:49)
[2018-07-11] MEDS ORDERED: FUROSEMIDE 10 MG/ML VIAL ONE (08:05)
[2018-07-11] MEDS ORDERED: PREGABALIN 50 MG CAPSULE PO PRN (12:41)
[2018-07-11] MEDS ORDERED: WARFARIN SODIUM 3 MG TABLET PO PRN (12:41)
[2018-07-11] MEDS ORDERED: ALBUTEROL SULFATE 2.5 MG/0.5 ML VIAL.NEB IH PRN (13:00)
[2018-07-11] MEDS ORDERED: TREPROSTINIL INH SCH (13:00)
[2018-07-11] MEDS ORDERED: ALBUTEROL SULFATE 2.5 MG/0.5 ML VIAL.NEB IH SCH (13:00)
[2018-07-11 13:24] LABS: INR 3.33 INR (0.90-1.10); Prothrombin Time (Patient) 33.7 Seconds (9.0-11.0)
[2018-07-11] MEDS: MORPHINE SULFATE 15 MG TABLET.SA PO SCH ×2 (13:52→20:04)
[2018-07-11] MEDS: SILDENAFIL CITRATE 20 MG TABLET PO SCH ×2 (13:54→18:09)
[2018-07-11] MEDS ORDERED: WARFARIN SODIUM 5 MG TABLET PO SCH (17:00)
[2018-07-11] MEDS: TREPROSTINIL INH SCH ×2 (18:10→22:07)
--- NOTE | 2018-07-11 20:59 | HP ---
Chief Complaint - Chief Complaint Date of Service: 07/11/18 Time of Service: 20:53 Chief Complaint: " SOB, Desaturations". Source of HPI- Pt; reliable, Pt's son Ankur, ERP report, pt's EMR. History of Present Illness: Mrs Wright is a 77-yr-old [facility] pt of Dr. Errol Monzon with a PMH of: Anemia, A-fib, COPD, Chronic Hypoxemic Respiratory Failure, HTN, HLD, Pulmonary Arterial hypertension-secondary to Scleroderma, Raynaud's, syndrome, PVD, Obstructive Sleep Apnea, SLE, Small cell lung cancer (dx on CT guided biospsy ). Pt presented to the ED with complaints of severe dyspnea which has been worsening for the last 1 week since being discharged from the [facility]. Pt's son states that Mrs. Wright completed 30 cycles of radiation therapy for the Lung Cancer about 6 weeks ago. Since then, he states, her oxygen demands have increased and with the last hospital admission on 06/20/18, she was already on 15 L of oxygen (10 L oxygen at rest and 15 L with activity). She was transferred from [facility] to [facility] on 06/22/18 due to minimal improvement on her CXR following diuretic therapy for interstitial edema and she needed to be at a facility with pulmonary services. Son states pt got transferred from [facility] again to the [facility] due to minimal improvements with diuresis for her pulmonary hypertension and due to continued significant Oxygen needs.(will request for medical records). Ankur states that following discharge from the [facility], the pt has required oxygen supplementation of up to 30 L. They have a portable saturation monitor at home. They have had to wire two oxygen concentrators to deliver a maximum of 15 L of oxygen and additional 1 tank of oxygen which delivers another 15L via the mask. They titrate the oxygen based on her SPO2 levels. Whenever she needs the total 30 L of O2, they have had to switch the oxygen tanks every 20-30 minutes. They chose to come to the ED today as her dyspnea was unrelieved with 02 supplementation and due to the burden of caring for her at home. Pt denies having fevers, chills, and increased sputum production. She has a cough,but is mostly non-productive. She is on Morphine 15 mg T.I.D and that provides relief for her dyspnea, but there are occasions when she needs it more than the scheduled times. At the ED today, CXR obtained was consistent with interstitial infiltrate and chronic changes of the lower aspect of the lung bilaterally. The ABGs showed Respiratory [place]. [place] [id number] with a left shift. She was given IV lasix and IV solumedrol. According to the ERP, pt declined BIPAP to alleviate dyspnea and still elected DNR/DNI code status. Ankur stated that in the past, they had declined hospice discussion concerning pt's medical issues. He states that they have reached a point where caring for the pt at home has become tasking and unsustainable for the pt due to;the excessive amount of oxygen she needs, constant switching of Oxygen tanks. They have had final acceptance about pt's poor prognosis. Pt states that she wants to be kept more comfortable and has agrees that she desires more quality end of life. Son also states that they no longer want to put her through the constant testing and IV draws/labs. He states that they have all agreed as a family for the pt to be transitioned to inhouse hospice care. The pt is alert and capable of making an informed decision, and affirms to this plan. Of note, pt has Pulmonary Fibrosis from her Scleroderma. She is unable to eat without getting dyspneic and has lost significant weight. With her multitude of pulmonary diseases involving: COPD, GRAHAM, Squamous Cell Carcinoma of the RUL, Chronic Hypoxic Respiratory failure, she is at a terminal stage of her illness with a limited life expectancy of less than 6 months. Therefore she is an appropriate candidate for an inpatient hospice care in order to continue managing symptoms as she approaches end of life and for psychosocial and spiritual support. Medical History (Last Updated 06/28/18 @ 10:12 by Deepa Medley) Deep vein thrombosis (DVT) (Chronic) Onset Date: Unknown Pulmonary hypertension (Chronic) Onset Date: ~11/21/14 GRAHAM (obstructive sleep apnea) (Chronic) Onset Date: Unknown Hyperlipidemia (Chronic) Onset Date: Unknown Essential hypertension (Chronic) Onset Date: Unknown COPD (chronic obstructive pulmonary disease) (Chronic) Onset Date: ~11/19/14 Chronic respiratory failure with hypoxia Lower extremity edema Onset Date: ~10/2014 Lung mass Onset Date: ~2017 Occlusion and stenosis of unspecified carotid artery Onset Date: ~05/06/06 Onycholysis Onset Date: ~09/28/12 Onychomycosis Onset Date: ~09/28/12 Peripheral vascular disease Onset Date: ~05/06/06 Pulmonary artery hypertension Onset Date: ~06/22/18 Raynauds disease Onset Date: Unknown Scleroderma Onset Date: Unknown Sialoadenitis Onset Date: ~08/22/15 Systemic lupus erythematosus Onset Date: ~02/12/14 Systemic sclerosis with limited cutaneous involvement Onset Date: ~08/22/14 H/O echocardiogram Onset Date: ~06/22/18 Squamous cell carcinoma of right lung Onset Date: ~03/31/18 Surgical History: Surgical History (Last Reviewed 07/11/18 @ 10:00 by Cindy Duarte RN) H/O colonoscopy Onset Date: ~04/2008 History of appendectomy Onset Date: Unknown History of cataract surgery Onset Date: Unknown History of hysterectomy Onset Date: ~1959 S/P aortobifemoral bypass surgery Onset Date: ~1999 Family History: Family History (Last Reviewed 07/11/18 @ 10:00 by Cindy Duarte RN) Father Lung cancer Social History: Patient Lives/Resources 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 Smoking Status Former smoker Have you smoked in the past 12 No months Abuse History No History of abuse Psych History No pertinent hx Alcohol Use none Drug Use none Review Of Systems (GEN) - Review of Systems Generalized/Overall Review: Present: Weakness. Absent: Chills, Fever, Malaise EENTM: Absent: Eye Pain, Blurred Vision Respiratory: Present: Cough, Shortness of Breath, Orthopnea Cardiac: Absent: Chest Pain, Edema, Palpitations, Syncope Abdominal: Absent: Nausea, Vomiting, Hematemesis, Abdominal Pain, Constipation Genitourinary: Absent: Burning, Itching Musculoskeletal: Absent: Joint Pain, Back Pain Neurological: Present: Anxiety, Depressed. Absent: Headache, Emotional Problems Skin: Absent: Dryness, Lesions Endocrine: Present: Intolerance to Heat. Absent: Intolerance to Cold, Increased Thirst Misc: All systems neg except as marked Immunizations: IMMUNIZATION HX Immunizations Up to Date Yes History of Influenza Vaccine Yes Hx Pneumococcal Vaccination Yes Allergies/Adverse Reactions: Allergies Allergy/AdvReac Type Severity Reaction Status Date / Time tramadol Allergy Severe Swelling Verified 06/20/18 21:30 of Throat sulfamethoxazole Allergy Unknown Hives Verified 06/20/18 21:30 [From Bactrim] trimethoprim [From Bactrim] Allergy Unknown Hives Verified 06/20/18 21:30 Home Medications: HOME MEDICATIONS Fluticasone/Vilanterol [Breo Ellipta 100-25 Mcg INH] 1 each IH QAM 06/20/18 [ Last Taken 06/20/18 08:00] Furosemide [Lasix] 80 mg PO DAILY 06/20/18 [Last Taken 06/20/18 08:00] HYDROcodone/ACETAMINOPHEN [[place] 5-325 Tablet] 1 tab PO Q6H PRN 06/20/18 [Last Taken Unknown] Macitentan [Opsumit] 10 mg PO QAM 06/20/18 [Last Taken 06/20/18 08:00] Metoprolol Succinate 12.5 mg PO QAM 06/20/18 [Last Taken 06/20/18 08:00] Pregabalin [Lyrica] 50 mg PO DAILY PRN 06/20/18 [Last Taken Unknown] Sildenafil Citrate [Revatio] 40 mg PO TID 06/20/18 [Last Taken Unknown] Treprostinil [Tyvaso] 12 puff INH QID 06/20/18 [Last Taken Unknown] Umeclidinium [place] [Incruse Ellipta] 62.5 mcg IH QAM 06/20/18 [Last Taken 08:00] Warfarin Sodium [Coumadin] 3 mg PO PRN PRN 06/20/18 [Last Taken Unknown] Warfarin Sodium [Coumadin] 5 mg PO QPM 06/20/18 [Last Taken 06/20/18 18:00] Zolpidem Tartrate [Ambien] 10 mg PO HS 06/20/18 [Last Taken Unknown] morphine ER 15 mg tablet,extended release 15 mg PO ONCE #30 tab 07/08/18 [Last Taken Unknown] Exam - Exam Vital Signs: Vital Signs - Last Taken Temp 36.8 C 07/11/18 15:35 Pulse 82 07/11/18 15:35 Resp 16 07/11/18 15:35 BP 109/46 07/11/18 15:35 Pulse Ox 93 07/11/18 19:42 Constitutional: Present: Alert, Oriented x3, Cooperative, No distress, Elderly ENT Exam: Present: normal ENT inspection, dry mucous membranes Eye Exam: bilateral eye: normal inspection, PERRL Neck: Present: non-tender, full range of motion, supple Back Exam: Present: normal inspection, no CVA tenderness Breasts: Present: Exam deferred Respiratory: Present: no accessory muscle use, rales, rhonchi Cardiovascular/Chest: Present: normal peripheral pulses, regular rate, rhythm, no chest tenderness Abdomen: Present: Normal bowel sounds, soft, nontender /Rectal: Present: Exam deferred Extremity: Present: normal range of motion, non-tender, normal inspection, no pedal edema Skin Exam: Present: warm/dry, no cyanosis Lymphatic: Present: no adenopathy Neurologic: Present: no motor/sensory deficits, alert, normal mood/affect Appearance: Present: appropriate appearance, appropriate insight Eye contact: Present: cooperative, good eye contact, normal speech Thoughts: Present: no apparent hallucination Diagnostic Studies: Abnormal Lab Results 07/11/18 07/11/18 07/11/18 Range/Units 06:20 07:20 07:20 WBC 10.7 H (4.0-10.5) K/mm3 RBC 3.34 L (4.2-5.4) M/mm3 Hgb 10.1 L (12.5-16.0) gm/dL Hct 32.1 L (37.0-47.0) % MCHC 31.5 L (32-36) g/dl RDW 19.3 H (11.5-14.0) % Plt Count 137 L (150-450) K/mm3 Immature Gran % (Auto) 0.70 H (0.001-0.429) % Immature Gran # (Auto) 0.07 H (0.000-0.0310) K/mm3 Neutrophils % 89.2 H (42-75.0) % Lymphocytes % 3.1 L (20-51) % Neutrophils # 9.5 H (1.3-6.0) K/mm3 Lymphocytes # 0.33 L (1.5-3.5) k/mm3 PT (9.0-11.0) Seconds INR (Anticoag Therapy) (0.90-1.10) INR HCO3 32.5 H (21.0-28.0) mmol/L Total CO2 33.8 H (19.0-24.0) mmol/L Base Excess 8.2 H (-2.0-3.0) mmol/L ABG pH 7.48 H (7.35-7.45) Chloride 95 L (97-106) mmol/L Carbon Dioxide 37.4 H (24-32.6) mmol/L BUN/Creatinine Ratio 24.2 H (9.0-21.6) Random Glucose 128 H (70-110) mg/dL ALT 15 L (19-67) U/L B-Natriuretic Peptide (5-550) pg/mL Albumin 2.7 L (3.4-5.0) gm/dl 07/11/18 07/11/18 Range/Units 07:20 Unknown WBC (4.0-10.5) K/mm3 RBC (4.2-5.4) M/mm3 Hgb (12.5-16.0) gm/dL Hct (37.0-47.0) % MCHC (32-36) g/dl RDW (11.5-14.0) % Plt Count (150-450) K/mm3 Immature Gran % (Auto) (0.001-0.429) % Immature Gran # (Auto) (0.000-0.0310) K/mm3 Neutrophils % (42-75.0) % Lymphocytes % (20-51) % Neutrophils # (1.3-6.0) K/mm3 Lymphocytes # (1.5-3.5) k/mm3 PT 33.7 H (9.0-11.0) Seconds INR (Anticoag Therapy) 3.33 H (0.90-1.10) INR HCO3 (21.0-28.0) mmol/L Total CO2 (19.0-24.0) mmol/L Base Excess (-2.0-3.0) mmol/L ABG pH (7.35-7.45) Chloride (97-106) mmol/L Carbon Dioxide (24-32.6) mmol/L BUN/Creatinine Ratio (9.0-21.6) Random Glucose (70-110) mg/dL ALT (19-67) U/L B-Natriuretic Peptide 5558 H (5-550) pg/mL Albumin (3.4-5.0) gm/dl Laboratory Results WBC 10.7 K/mm3 (4.0-10.5) H 07/11/18 07:20 RBC 3.34 M/mm3 (4.2-5.4) L 07/11/18 07:20 Hgb 10.1 gm/dL (12.5-16.0) L 07/11/18 07:20 Hct 32.1 % (37.0-47.0) L 07/11/18 07:20 MCV 96.1 fl (78-100) 07/11/18 07:20 MCH 30.2 pg (27-31) 07/11/18 07:20 MCHC 31.5 g/dl (32-36) L 07/11/18 07:20 RDW 19.3 % (11.5-14.0) H 07/11/18 07:20 Plt Count 137 K/mm3 (150-450) L 07/11/18 07:20 MPV 9.9 fl (8-12.5) 07/11/18 07:20 Immature Gran % (Auto) 0.70 % (0.001-0.429) H 07/11/18 07:20 Immature Gran # (Auto) 0.07 K/mm3 (0.000-0.0310) H 07/11/18 07:20 Neutrophils % 89.2 % (42-75.0) H 07/11/18 07:20 Lymphocytes % 3.1 % (20-51) L 07/11/18 07:20 Monocytes % 6.6 % (0.0-9) 07/11/18 07:20 Eosinophils % 0.3 % (0.0-3.0) 07/11/18 07:20 Basophils % 0.1 % (0.0-1.0) 07/11/18 07:20 Nucleated RBC % 0.0 k/mm3 (0-1) 07/11/18 07:20 Neutrophils # 9.5 K/mm3 (1.3-6.0) H 07/11/18 07:20 Lymphocytes # 0.33 k/mm3 (1.5-3.5) L 07/11/18 07:20 Monocytes # 0.7 k/mm3 (0.0-1.0) 07/11/18 07:20 Eosinophils # 0.0 k/mm3 (0.0-0.7) 07/11/18 07:20 Absolute Basophils 0.0 k/mm3 (0.0-0.1) 07/11/18 07:20 PT 33.7 Seconds (9.0-11.0) H 07/11/18 Unknown INR (Anticoag Therapy) 3.33 INR (0.90-1.10) H 07/11/18 Unknown pCO2 44.3 mmHg (32.0-45.0) 07/11/18 06:20 pO2 88.2 mmHg (83.0-108.0) 07/11/18 06:20 HCO3 32.5 mmol/L (21.0-28.0) H 07/11/18 06:20 Total CO2 33.8 mmol/L (19.0-24.0) H 07/11/18 06:20 Base Excess 8.2 mmol/L (-2.0-3.0) H 07/11/18 06:20 ABG pH 7.48 (7.35-7.45) H 07/11/18 06:20 ABG O2 Sat (Measured) 97.2 % (94.0-98.0) 07/11/18 06:20 Sodium 136 mmol/L (132-142) 07/11/18 07:20 Plasma Sodium 136 mmol/L (130-142) 07/11/18 07:20 Potassium 3.5 mmol/L (3.4-4.6) 07/11/18 07:20 Chloride 95 mmol/L (97-106) L 07/11/18 07:20 Carbon Dioxide 37.4 mmol/L (24-32.6) H 07/11/18 07:20 Anion Gap 7.1 mmol/L (6.8-13.8) 07/11/18 07:20 BUN 22 mg/dL (3-23) 07/11/18 07:20 Creatinine 0.91 mg/dL (0.4-1.4) 07/11/18 07:20 Est GFR (Non-Af Amer) 63 mL/min (60-130) D 07/11/18 07:20 BUN/Creatinine Ratio 24.2 (9.0-21.6) H 07/11/18 07:20 Random Glucose 128 mg/dL (70-110) H 07/11/18 07:20 Calcium 8.6 mg/dL (7.9-10.9) 07/11/18 07:20 Calcium Adj for Albumin 9.3 mg/dL (8.4-10.2) 07/11/18 07:20 Total Bilirubin 0.6 mg/dL (0.0-1.1) 07/11/18 07:20 AST 19 U/L (0-48) 07/11/18 07:20 ALT 15 U/L (19-67) L 07/11/18 07:20 Alkaline Phosphatase 65 U/L (50-170) 07/11/18 07:20 B-Natriuretic Peptide 5558 pg/mL (5-550) H 07/11/18 07:20 Total Protein 6.7 gm/dL (6.2-8.2) 07/11/18 07:20 Albumin 2.7 gm/dl (3.4-5.0) L 07/11/18 07:20 Assessment/Plan - Assessment/Plan (1) Hospice care Assessment: As stated in HPI- Will consult hospice in am. Provide symptomatic cares for pt with morphine to alleviate dyspnea, and provide oxygen supplementation. Problem: Acute (2) Acute and chronic respiratory failure Problem: Acute (3) Severe End Stage COPD Problem: Acute (4) Pulmonary arterial hypertension Problem: Chronic (5) GRAHAM (obstructive sleep apnea) Problem: Chronic (6) Lung cancer Problem: Chronic Qualifiers: Laterality: right Lung location: lower lobe of lung Qualified Code(s): C34.31 - Malignant neoplasm of lower lobe, right bronchus or lung (7) Hyperlipidemia Problem: Chronic (8) Essential hypertension Problem: Chronic (9) COPD (chronic obstructive pulmonary disease) Problem: Chronic
[2018-07-11] MEDS ORDERED: ZOLPIDEM TARTRATE 10 MG TABLET PO SCH (21:00)
[2018-07-12] MEDS ORDERED: MORPHINE SULFATE 15 MG TABLET.SA PO ONE (01:45)
[2018-07-12] MEDS: MORPHINE SULFATE 15 MG TABLET.SA PO SCH (03:39)
[2018-07-12] MEDS ORDERED: diphenhydrAMINE HCL 25 MG CAPSULE PO ONE (05:20)
[2018-07-12 07:54] LABS: Prothrombin Time (Patient) 41.9 Seconds (9.0-11.0)
[2018-07-12 08:11] LABS: INR 4.13 INR (0.90-1.10)
--- NOTE | 2018-07-12 08:34 | PN ---
Subjective - Date and Time Seen Time: 08:30 Subjective Narrative: She is not having pain but remained to be very anxious because of shortness of breath requiring large amount of oxygen Objective - Review of Systems Generalized/Overall Review: Reports: Weakness EENTM: Reports: No Symptoms Reported Respiratory: Reports: Cough, Shortness of Breath Cardiac: Reports: No Symptoms Reported Abdominal: Reports: No Symptoms Reported Genitourinary Symptoms: Reports: No Symptoms Reported Musculoskeletal Complaints: Reports: No Symptoms Reported Neurological: Reports: Anxiety, Depressed Skin: Reports: No Symptoms Reported - Vitals Vitals: Last Vital Signs Temp 36.8 C 07/12/18 05:09 Pulse 83 07/12/18 05:09 Resp 14 07/12/18 05:09 BP 118/42 07/12/18 05:09 Pulse Ox 98 07/12/18 05:50 - Abnormal Lab Findings Abnormal Lab Findings: Abnormal Lab Results 07/11/18 07/11/18 07/12/18 Range/Units 07:20 Unknown 07:35 PT 33.7 H 41.9 H (9.0-11.0) Seconds INR (Anticoag Therapy) 3.33 H 4.13 H* (0.90-1.10) INR B-Natriuretic Peptide 5558 H (5-550) pg/mL - Exam Constitutional: Present: Alert, Oriented x3, Cooperative, No distress ENT Exam: Present: normal ENT inspection Respiratory: Present: lungs clear, crackles. Absent: wheezing Cardiovascular/Chest: Present: regular rate, rhythm, no JVD Abdomen: Present: soft, nontender Extremity: Present: no pedal edema Skin Exam: Present: normal color Neurologic: Present: vault installer II-XII nml as tested Appearance: Present: appropriate appearance Assessment/Plan Plan Narrative: I discussed with patient and family regarding hospice and terminal care and they are agreeable with hospice and comfort care I also agree to give when necessary Ativan which she has been taking regularly before this hospitalization - Problems/Diagnosis (1) Severe End Stage COPD Problem: Chronic (2) Pulmonary hypertension Problem: Chronic (3) Hospice care Problem: Acute (4) Shortness of breath Problem: Acute (5) Bronchitis Problem: Chronic
[2018-07-12] MEDS ORDERED: LORazepam 1 MG TABLET PO PRN (08:35)
[2018-07-12] MEDS ORDERED: MORPHINE SULFATE 10 MG/0.5 ML SYRINGE PO PRN (08:45)
[2018-07-12] MEDS ORDERED: METOPROLOL SUCCINATE 25 MG TABLET.SA PO SCH (09:00)
[2018-07-12] MEDS ORDERED: Fluticasone/Vilanterol [Breo Ellipta 100-25 Mcg Inh] IH SCH (09:00)
[2018-07-12] MEDS ORDERED: FUROSEMIDE 80 MG TABLET PO SCH (09:00)
[2018-07-12] MEDS ORDERED: Macitentan [Opsumit] 10 MG PO SCH (09:00)
[2018-07-12] MEDS ORDERED: predniSONE 20 MG TABLET PO SCH (09:00)
--- NOTE | 2018-07-12 09:11 | DS ---
(1) Severe End Stage COPD Problem: Chronic (2) Pulmonary hypertension Problem: Chronic (3) Hospice care Problem: Acute (4) Shortness of breath Problem: Acute (5) Bronchitis Problem: Chronic Description of Stay: 77-year-old white female with the history of severe pulmonary hypertension scleroderma and and end stage COPD and small cell lung carcinoma that was treated recently with multiple radiation. She was brought in to the emergency room because of severe shortness of breath. She was recently discharged from [facility] where she was treated for pneumonia COPD and pulmonary hypertension. I consider her a terminal stage of her illness because of her multiple multiple medical problems she will require large amount of oxygen and narcotic medication Procedures Performed: none Results and Findings: Pending Mircobiology Results 07/11/18 07:10 Blood Blood Culture - Preliminary NO GROWTH 24 HOURS 07/11/18 07:25 Blood Blood Culture - Preliminary NO GROWTH 24 HOURS Lab Pending Results 07/11/18 06:20: pCO2 44.3, pO2 88.2, HCO3 32.5 H, Total CO2 33.8 H, Base Excess 8.2 H, ABG pH 7.48 H, ABG O2 Sat (Measured) 97.2 07/11/18 07:20: WBC 10.7 H, RBC 3.34 L, Hgb 10.1 L, Hct 32.1 L, MCV 96.1, MCH 30.2, MCHC 31.5 L, RDW 19.3 H, Plt Count 137 L, MPV 9.9, Immature Gran % (Auto) 0.70 H, Immature Gran # (Auto) 0.07 H, Neutrophils % 89.2 H, Lymphocytes % 3.1 L , Monocytes % 6.6, Eosinophils % 0.3, Basophils % 0.1, Nucleated RBC % 0.0, Neutrophils # 9.5 H, Lymphocytes # 0.33 L, Monocytes # 0.7, Eosinophils # 0.0, Absolute Basophils 0.0 07/11/18 07:20: Sodium 136, Plasma Sodium 136, Potassium 3.5, Chloride 95 L, Carbon Dioxide 37.4 H, Anion Gap 7.1, BUN 22, Creatinine 0.91, Est GFR (Non-Af Amer) 63 D, BUN/Creatinine Ratio 24.2 H, Random Glucose 128 H, Calcium 8.6, Calcium Adj for Albumin 9.3, Total Bilirubin 0.6, AST 19, ALT 15 L, Alkaline Phosphatase 65, Total Protein 6.7, Albumin 2.7 L 07/11/18 07:20: B-Natriuretic Peptide 5558 H 07/11/18 : PT 33.7 H, INR (Anticoag Therapy) 3.33 H 07/12/18 07:35: PT 41.9 H, INR (Anticoag Therapy) 4.13 H* Discharge Location: Other Disposition: Hospice Medical Facility Home Health Agency: [facility] Hospice Condition: Serious Discharge Activity: Activity as tolerated Discharge Diet: General/regular food Referrals: Errol Monzon MD [Primary Care Provider] - Additional Patient Instructions (free text): To [facility]. Prescriptions (Any new or edited meds): LORazepam [Ativan] 1 mg PO Q12H #60 tab Morphine Sulfate [Morphine Sulfate Conc. Oral Solution] 5 mg PO Q2H PRN #50 ml PRN Reason: Pain Complete Home Medications List: Complete Home Medication List: Fluticasone/Vilanterol [Breo Ellipta 100-25 Mcg INH] 1 each IH QAM 06/20/18 Furosemide [Lasix] 80 mg PO DAILY 06/20/18 Macitentan [Opsumit] 10 mg PO QAM 06/20/18 Metoprolol Succinate 12.5 mg PO QAM 06/20/18 Pregabalin [Lyrica] 50 mg PO DAILY PRN 06/20/18 Sildenafil Citrate [Revatio] 40 mg PO TID 06/20/18 Treprostinil [Tyvaso] 12 puff INH QID 06/20/18 Umeclidinium [place] [Incruse Ellipta] 62.5 mcg IH QAM 06/20/18 Warfarin Sodium [Coumadin] 3 mg PO PRN PRN 06/20/18 Warfarin Sodium [Coumadin] 5 mg PO QPM 06/20/18 Zolpidem Tartrate [Ambien] 10 mg PO HS 06/20/18 Albuterol Sulfate [Albuterol Sulfate 2.5 MG/0.5ML] 2.5 mg IH Q6H PRN vial.neb 07/12/18 LORazepam [Ativan] 1 mg PO Q12H #60 tab 07/12/18 LORazepam [Ativan] 1 mg PO Q2H PRN tablet 07/12/18 Macitentan [Opsumit] 10 mg PO QAM 07/12/18 Morphine Sulfate [Morphine Sulfate Conc. Oral Solution] 5 mg PO Q1H PRN syringe 07/12/18 Morphine Sulfate [Morphine Sulfate Conc. Oral Solution] 5 mg PO Q2H PRN #50 ml 07/12/18 Morphine Sulfate [Ms Contin] 15 mg PO Q8H tablet.sa 07/12/18 predniSONE [Prednisone] 20 mg PO DAILY tablet 07/12/18
[2018-07-12] MEDS: SILDENAFIL CITRATE 20 MG TABLET PO SCH (09:13)
[2018-07-12] MEDS: TREPROSTINIL INH SCH (09:14)
[2018-07-12 09:38] VITALS: BP 120/49
[2018-07-12] MEDS ORDERED: WARFARIN SODIUM 1 TAB TAB PO SCH (17:00)
== END 2018-07-12 11:09 | disposition hospice, home (50) | DRG 181 ==
LOC: ER 06:14 → MS 07:47
PROVIDERS: ADMIT Family Medicine; ATTEND Family Medicine
CPT/HCPCS: 36415; 36600; 71010; 71045; 80053; 82803; 83519; 83880; 85025; 85610; 87040; 93005; 94640; 94664; 94760; 96374; 96375; 99285